=== PATIENT | female | born 1960 | race Caucasian/White ===

== ENCOUNTER 2021-07-17 11:17 | Inpatient (IN) | payer OTHER ==
[2021-07-17] MEDS ORDERED: Sodium Chloride 0.9% 10 ML Syringe FLUSH PRN (12:37)
[2021-07-17] MEDS ORDERED: Ondansetron 4 MG/2 ML SDV IV PRN (12:37)
[2021-07-17] MEDS ORDERED: HYDROmorphone 0.5 MG/0.5 ML Syringe IVPUSH PRN (12:40)
[2021-07-17] MEDS: Lactated Ringers 1,000 ML IV SCH ×2 (12:50→13:28)
[2021-07-17 13:11] LABS: CORONAVIRUS COVID-19 NAA NEGATIVE (NEGATIVE)
[2021-07-17] MEDS ORDERED: Naloxone 0.4 MG/ML SDV IV PRN (13:20)
[2021-07-17] MEDS ORDERED: Dicyclomine 10 MG Cap PO SCH (14:00)
[2021-07-17] MEDS: Labetalol 20 MG/4 ML Syringe IV PRN (17:02)
[2021-07-17] MEDS: atorvaSTATin 20 MG Tab PO SCH (17:17)
[2021-07-17] MEDS: Pantoprazole 40 MG Tab.CR PO SCH (17:18)
[2021-07-17] MEDS ORDERED: Non-Formulary Medication 1 Each (Atorvastatin [Lipitor] 80 MG Tablet) PO SCH (18:00)
[2021-07-17] MEDS: Carvedilol 12.5 MG Tab PO SCH (20:47)
[2021-07-17] MEDS: Losartan 25 MG Tab PO SCH (20:48)
[2021-07-17] MEDS: Dextrose 5%-Lactated Ringers 1,000 ML IV SCH (20:50)
[2021-07-18] MEDS: Dextrose 5%-Lactated Ringers 1,000 ML IV SCH ×3 (04:27→23:26)
[2021-07-18] MEDS ORDERED: Ketamine 500 MG/5 ML MDV IV SCH ×3 (07:00→12:00)
[2021-07-18] MEDS: Pantoprazole 40 MG Tab.CR PO SCH ×2 (07:01→17:00)
[2021-07-18] MEDS ORDERED: Potassium Chloride Riders 40 MEQ in Premix Bag 1 BAG IV ONE (07:23)
[2021-07-18] MEDS: Losartan 50 MG Tab PO SCH (07:29)
[2021-07-18] MEDS: Magnesium Sulfate/Water 2 GM/50 ML BAG IV SCH ×3 (08:24→20:09)
[2021-07-18] MEDS: Potassium Chloride 20 MEQ in Premix Bag 1 BAG IV SCH ×2 (08:25→10:33)
[2021-07-18] MEDS: Aspirin 81 MG Tab.Chew PO SCH (08:25)
[2021-07-18] MEDS: Ezetimibe 10 MG Tab PO SCH (08:26)
[2021-07-18] MEDS: Carvedilol 12.5 MG Tab PO SCH ×2 (08:26→20:20)
[2021-07-18] MEDS ORDERED: [UNRECOGNIZED DRUG - REMARK] PO SCH (09:00)
[2021-07-18] MEDS ORDERED: Ferrous Sulfate 325 MG Tab PO SCH (09:00)
[2021-07-18] MEDS ORDERED: Cyanocobalamin (Vitamin B12) 1,000 MCG Tab PO SCH (09:00)
[2021-07-18] MEDS ORDERED: Ascorbic Acid 500 MG Tab PO SCH (09:00)
[2021-07-18] MEDS ORDERED: Multivitamins with Iron Tab.Chew PO SCH (09:00)
[2021-07-18] MEDS ORDERED: Fish Oil/Omega-3 Fatty Acids 1 Gm Cap PO SCH (09:00)
[2021-07-18] MEDS ORDERED: ASCORBIC ACID 500 MG PO SCH (09:00)
[2021-07-18] MEDS ORDERED: fentaNYL 250 MCG/5 ML SDV ONE (10:31)
[2021-07-18] MEDS ORDERED: Rocuronium 50 MG/5 ML Vial ONE ×2 (10:32→15:28)
[2021-07-18] MEDS ORDERED: Neostigmine Methylsulfate 1 MG/ML 5 ML Syringe ONE (10:32)
[2021-07-18] MEDS ORDERED: Propofol 200 MG/20 ML SDV ONE (10:32)
[2021-07-18] MEDS ORDERED: Dexamethasone 4 MG/ML SDV ONE (10:32)
[2021-07-18] MEDS ORDERED: Glycopyrrolate 0.2 MG/ML 5 ML MDV ONE (10:32)
[2021-07-18] MEDS ORDERED: Ondansetron 4 MG/2 ML SDV ONE (10:32)
[2021-07-18] MEDS ORDERED: Succinylcholine 200 MG/10 ML MDV ONE (10:32)
[2021-07-18] MEDS: Labetalol 20 MG/4 ML Syringe IV PRN (10:48)
[2021-07-18] MEDS ORDERED: Ropivacaine 28 ML, dexAMETHasone 8 MG, EPINEPHrine 0.4 MG, Sodium Chloride 0.9% 49.6 ML NERVRT SCH ×4 (12:00)
[2021-07-18] MEDS ORDERED: Ketamine 15 MG in Sodium Chloride 0.9% 19.85 ML IV SCH (12:00)
[2021-07-18] MEDS ORDERED: cefOXitin 2 GM in Sodium Chloride 0.9% 50 ML IV ONE (12:00)
[2021-07-18] MEDS ORDERED: Bupivacaine 0.5% 50 ML MDV ONE (13:04)
[2021-07-18] MEDS ORDERED: Lidocaine 1% with EPINEPHrine 1:100,000 50 ML MDV ONE (13:04)
[2021-07-18] MEDS ORDERED: Meropenem 500 MG SDV ONE (13:08)
[2021-07-18] MEDS: HYDROmorphone/Normal Saline 6 MG/30 ML PCA Vial IV PRN (14:28)
[2021-07-18] MEDS ORDERED: Labetalol 20 MG/4 ML Syringe ONE (16:08)
[2021-07-18] MEDS ORDERED: Sugammadex Sodium 200 MG/2 ML VIAL ONE (16:10)
[2021-07-18] MEDS ORDERED: Naloxone 0.4 MG/ML SDV ONE (16:30)
[2021-07-18] MEDS ORDERED: hydrALAZINE 20 MG/ML SDV ONE (16:39)
[2021-07-18] MEDS: atorvaSTATin 20 MG Tab PO SCH (18:04)
[2021-07-18] MEDS: Losartan 25 MG Tab PO SCH (20:19)
[2021-07-19] MEDS: Magnesium Sulfate/Water 2 GM/50 ML BAG IV SCH ×4 (02:24→22:35)
[2021-07-19] MEDS ORDERED: Iopamidol 612 MG/ML 50 ML SDV PO STA (02:47)
[2021-07-19] MEDS: Dextrose 5%-Lactated Ringers 1,000 ML IV SCH (05:06)
[2021-07-19] MEDS ORDERED: Lactated Ringers 500 ML IV SCH (06:45)
[2021-07-19] MEDS ORDERED: Lactated Ringers 500 ML IV ONE (06:48)
[2021-07-19] MEDS ORDERED: Cyclobenzaprine 10 MG Tab PO PRN (07:28)
[2021-07-19] MEDS ORDERED: Albuterol/Ipratropium 3.0-0.5 MG/3 ML Neb Soln INH PRN (07:30)
[2021-07-19] MEDS ORDERED: Acetaminophen 500 MG Tab PO PRN (08:00)
[2021-07-19] MEDS ORDERED: Labetalol 20 MG/4 ML Syringe IVPUSH PRN (08:00)
[2021-07-19] MEDS ORDERED: Metoclopramide 10 MG/2 ML SDV IVPUSH PRN (08:00)
[2021-07-19] MEDS ORDERED: Ferrous Sulfate 325 MG Tab PO SCH (08:00)
[2021-07-19] MEDS ORDERED: diphenhydrAMINE 50 MG/ML SDV IVPUSH PRN (08:00)
[2021-07-19] MEDS ORDERED: Scopolamine 1.5 MG Transdermal Patch TOP SCH (08:00)
[2021-07-19] MEDS ORDERED: hydrOXYzine HCL 100 MG/2 ML SDV IM PRN (08:00)
[2021-07-19] MEDS: cefOXitin 2 GM in Sodium Chloride 0.9% 50 ML IV SCH ×3 (08:50→19:59)
[2021-07-19] MEDS: Bisacodyl 5 MG Tab PO SCH ×2 (08:52→20:09)
[2021-07-19] MEDS: Celecoxib 200 MG Cap PO SCH ×2 (08:53→20:07)
[2021-07-19] MEDS: Acetaminophen 500 MG Tab PO SCH ×2 (08:53→17:33)
[2021-07-19] MEDS: Docusate Sodium 100 MG Cap PO SCH ×2 (08:53→20:08)
[2021-07-19] MEDS: Heparin Sodium 5,000 Units/ML Vial SUBCUT SCH ×2 (08:54→20:09)
[2021-07-19] MEDS: Clopidogrel 75 MG Tab PO SCH (08:54)
[2021-07-19] MEDS: SCOPOLAMINE PATCH CHECK TOP SCH (08:54)
[2021-07-19] MEDS: Carvedilol 12.5 MG Tab PO SCH ×2 (08:56→20:08)
[2021-07-19] MEDS: Losartan 50 MG Tab PO SCH (08:58)
[2021-07-19] MEDS: Aspirin 81 MG Tab.Chew PO SCH (08:59)
[2021-07-19] MEDS ORDERED: Sodium Chloride 0.9% 500 ML IV ONE (09:00)
[2021-07-19] MEDS ORDERED: Pantoprazole 40 MG Vial IVPUSH SCH (09:00)
[2021-07-19] MEDS: Sodium Ferric Gluconate Cmplex 250 MG in Sodium Chloride 0.9% 100 ML IV SCH (09:24)
[2021-07-19] MEDS ORDERED: MVI, Adult with Vitamin K 10 ML, Thiamine 200 MG, Zinc/Copper/Manganese/Selenium 1 ML i... IV SCH ×4 (10:00)
[2021-07-19] MEDS: Ezetimibe 10 MG Tab PO SCH (10:30)
[2021-07-19] MEDS: MVI, Adult with Vitamin K 10 ML, Thiamine 200 MG, Zinc/Copper/Manganese/Selenium 1 ML i... IV SCH ×4 (14:20)
[2021-07-19] MEDS: atorvaSTATin 20 MG Tab PO SCH (17:33)
[2021-07-19] MEDS: Losartan 25 MG Tab PO SCH (20:08)
[2021-07-19] MEDS: Lactated Ringers 1,000 ML IV SCH (22:43)
[2021-07-20] MEDS: HYDROmorphone/Normal Saline 6 MG/30 ML PCA Vial IV PRN (00:47)
[2021-07-20] MEDS: Acetaminophen 500 MG Tab PO SCH ×3 (00:51→15:30)
[2021-07-20] MEDS: cefOXitin 2 GM in Sodium Chloride 0.9% 50 ML IV SCH ×3 (03:04→13:32)
[2021-07-20] MEDS: Magnesium Sulfate/Water 2 GM/50 ML BAG IV SCH ×3 (03:39→14:09)
[2021-07-20] MEDS: Lactated Ringers 1,000 ML IV SCH (07:17)
[2021-07-20] MEDS: Losartan 50 MG Tab PO SCH (07:22)
[2021-07-20] MEDS: Pantoprazole 40 MG Tab.CR PO SCH (07:22)
[2021-07-20] MEDS ORDERED: HYDROmorphone 2 MG Tab PO PRN (07:23)
[2021-07-20] MEDS ORDERED: Lactated Ringers 1,000 ML IV SCH (07:30)
[2021-07-20] MEDS ORDERED: Cyanocobalamin (Vitamin B12) 1,000 MCG/ML SDV IM ONE (09:00)
[2021-07-20] MEDS: Sodium Ferric Gluconate Cmplex 250 MG in Sodium Chloride 0.9% 100 ML IV SCH (09:58)
[2021-07-20] MEDS: Aspirin 81 MG Tab.Chew PO SCH (10:13)
[2021-07-20] MEDS: Celecoxib 200 MG Cap PO SCH ×2 (10:13→20:32)
[2021-07-20] MEDS: Docusate Sodium 100 MG Cap PO SCH ×2 (10:14→20:33)
[2021-07-20] MEDS: Carvedilol 12.5 MG Tab PO SCH ×2 (10:14→20:33)
[2021-07-20] MEDS: Bisacodyl 5 MG Tab PO SCH ×2 (10:16→20:34)
[2021-07-20] MEDS: Clopidogrel 75 MG Tab PO SCH (10:17)
[2021-07-20] MEDS: Ezetimibe 10 MG Tab PO SCH (10:18)
[2021-07-20] MEDS: Heparin Sodium 5,000 Units/ML Vial SUBCUT SCH ×2 (10:23→20:34)
[2021-07-20] MEDS: SCOPOLAMINE PATCH CHECK TOP SCH (11:12)
[2021-07-20] MEDS: MVI, Adult with Vitamin K 10 ML, Thiamine 200 MG, Zinc/Copper/Manganese/Selenium 1 ML i... IV SCH ×4 (13:30)
[2021-07-20] MEDS: atorvaSTATin 20 MG Tab PO SCH (18:45)
[2021-07-20] MEDS ORDERED: Magnesium Sulfate/Water 2 GM/50 ML BAG IV ONE (20:00)
[2021-07-20] MEDS: Losartan 25 MG Tab PO SCH (20:34)
[2021-07-21] MEDS: Acetaminophen 500 MG Tab PO SCH ×2 (01:07→09:05)
[2021-07-21] MEDS: Losartan 50 MG Tab PO SCH (07:19)
[2021-07-21] MEDS: Pantoprazole 40 MG Tab.CR PO SCH (07:19)
[2021-07-21] MEDS: Celecoxib 200 MG Cap PO SCH (09:08)
[2021-07-21] MEDS: Docusate Sodium 100 MG Cap PO SCH (09:08)
[2021-07-21] MEDS: Carvedilol 12.5 MG Tab PO SCH (09:09)
[2021-07-21] MEDS: Bisacodyl 5 MG Tab PO SCH (09:11)
[2021-07-21] MEDS: SCOPOLAMINE PATCH CHECK TOP SCH (09:13)
[2021-07-21] MEDS: Clopidogrel 75 MG Tab PO SCH (09:15)
[2021-07-21] MEDS: Ezetimibe 10 MG Tab PO SCH (09:16)
[2021-07-21] MEDS: Aspirin 81 MG Tab.Chew PO SCH (09:17)
[2021-07-21] MEDS: Heparin Sodium 5,000 Units/ML Vial SUBCUT SCH (09:26)
== END 2021-07-21 11:25 | disposition home or self-care (01) | DRG 329 ==
LOC: JP.ED 11:17 → JP.MS 12:37 → UNDOADMOB 12:37 → INTOOBSV 14:30 → OBSVTOIN 14:30 → UNDODISIN 07-21 11:25
PROVIDERS: ADMIT Surgery; ATTEND Surgery
PROC: 0DS80ZZ Reposition Small Intestine, Open Approach (ICD-10-PCS; principal; 2021-07-18)
PROC: 0DB80ZZ Excision of Small Intestine, Open Approach (ICD-10-PCS; 2021-07-18)
PROC: 0WQF0ZZ Repair Abdominal Wall, Open Approach (ICD-10-PCS; 2021-07-18)
PROC: 3E0M05Z Introduction of Adhesion Barrier into Peritoneal Cavity, Open Approach (ICD-10-PCS; 2021-07-18)
DX: K95.89 Other complications of other bariatric procedure (principal); K56.2 Volvulus; K91.2 Postsurgical malabsorption, not elsewhere classified; K43.0 Incisional hernia with obstruction, without gangrene; Z20.822 Contact with and (suspected) exposure to COVID-19; E53.8 Deficiency of other specified B group vitamins; I25.10 Atherosclerotic heart disease of native coronary artery without angina pectoris; E78.00 Pure hypercholesterolemia, unspecified; I10 Essential (primary) hypertension; K21.9 Gastro-esophageal reflux disease without esophagitis; D64.9 Anemia, unspecified; F17.210 Nicotine dependence, cigarettes, uncomplicated; I25.2 Old myocardial infarction; Z95.5 Presence of coronary angioplasty implant and graft; Z90.49 Acquired absence of other specified parts of digestive tract; Z98.890 Other specified postprocedural states; Z79.899 Other long term (current) drug therapy
CPT/HCPCS: 0241U; 36415; 74240; 74240-26; 80048; 80053; 81001; 82306; 82525; 82607; 82728; 82746; 83735; 83880; 84100; 84425; 84590; 84630; 85025; 96365; 96366; 96375; 96376; 99283; 99284; A9270-GY; C9113; G0378; J0171; J0330; J0360; J0694; J1100; J1170; J1644; J2020; J2185; J2310; J2405; J2704; J2710; J2795; J2916; J3010; J3411; J3420; J3475; J3480; J3490; J7040; J7120; J7121; Q9967

== ENCOUNTER 2021-08-05 09:32 | Emergency (ER) | payer OTHER ==
[2021-08-05] MEDS ORDERED: Sodium Chloride 0.9% 10 ML Syringe FLUSH PRN (10:16)
[2021-08-05] MEDS ORDERED: HYDROmorphone 1 MG/ML Syringe IVPUSH ONE (10:17)
[2021-08-05] MEDS ORDERED: LORazepam 2 MG/ML SDV IVPUSH ONE (10:17)
[2021-08-05] MEDS ORDERED: Iopamidol 612 MG/ML 100 ML Bottle IV PRN (12:12)
[2021-08-05] MEDS ORDERED: Sodium Chloride 0.9% 50 ML IV SCH (12:15)
== END 2021-08-05 14:18 | disposition home or self-care (01) ==
LOC: JP.ED 09:32
DX: R10.13 Epigastric pain (principal); F41.9 Anxiety disorder, unspecified; E87.6 Hypokalemia; K21.9 Gastro-esophageal reflux disease without esophagitis; I25.10 Atherosclerotic heart disease of native coronary artery without angina pectoris; E78.00 Pure hypercholesterolemia, unspecified; I10 Essential (primary) hypertension; I25.2 Old myocardial infarction; Z95.5 Presence of coronary angioplasty implant and graft; Z79.82 Long term (current) use of aspirin; Z79.899 Other long term (current) drug therapy; Z98.890 Other specified postprocedural states
CPT/HCPCS: 36415; 74177; 74177-26; 80053; 81001; 83605; 83690; 84443; 85025; 86140; 96374; 96375; 99283; 99284-25; J1170; J2060; J3490; Q9967

== ENCOUNTER 2021-08-07 22:41 | Inpatient (IN) | payer OTHER ==
[2021-08-07] MEDS ORDERED: Ondansetron 4 MG/2 ML SDV IVPUSH PRN (22:49)
[2021-08-07] MEDS ORDERED: Naloxone 0.4 MG/ML SDV IVPUSH PRN (22:50)
[2021-08-07] MEDS ORDERED: Losartan 50 MG Tab ONE (23:20)
[2021-08-07] MEDS: Carvedilol 12.5 MG Tab PO SCH (23:48)
[2021-08-07] MEDS: Losartan 25 MG Tab PO SCH (23:52)
[2021-08-07] MEDS: Dextrose 5%-Lactated Ringers 1,000 ML IV SCH (23:58)
[2021-08-08] MEDS: HYDROmorphone/Normal Saline 6 MG/30 ML PCA Vial IV PRN
[2021-08-08] MEDS: Dextrose 5%-Lactated Ringers 1,000 ML IV SCH ×3 (06:42→23:50)
[2021-08-08] MEDS ORDERED: Acetaminophen 325 MG Tab PO PRN (07:53)
[2021-08-08] MEDS ORDERED: Ondansetron 4 MG/2 ML SDV IVPUSH PRN (07:53)
[2021-08-08] MEDS: Losartan 50 MG Tab PO SCH (09:16)
[2021-08-08] MEDS: Carvedilol 12.5 MG Tab PO SCH ×2 (09:16→20:10)
[2021-08-08] MEDS: Pantoprazole 40 MG Vial IVPUSH SCH ×2 (09:17→20:11)
[2021-08-08] MEDS: Losartan 25 MG Tab PO SCH (17:44)
[2021-08-09] MEDS ORDERED: Potassium Chloride Riders 40 MEQ in Premix Bag 1 BAG IV ONE (07:23)
[2021-08-09] MEDS: Potassium Chloride 20 MEQ, Lidocaine 1% 2 ML in Sodium Chloride 0.9% 100 ML IV SCH ×2 (07:33→10:45)
[2021-08-09] MEDS: Dextrose 5%-Lactated Ringers 1,000 ML IV SCH (07:33)
[2021-08-09] MEDS: Carvedilol 12.5 MG Tab PO SCH ×2 (08:53→20:19)
[2021-08-09] MEDS: Losartan 50 MG Tab PO SCH (08:56)
[2021-08-09] MEDS ORDERED: fentaNYL 250 MCG/5 ML SDV ONE ×2 (10:16→14:00)
[2021-08-09] MEDS ORDERED: Neostigmine Methylsulfate 1 MG/ML 5 ML Syringe ONE (10:17)
[2021-08-09] MEDS ORDERED: Succinylcholine 200 MG/10 ML MDV ONE (10:17)
[2021-08-09] MEDS ORDERED: Glycopyrrolate 0.2 MG/ML 5 ML MDV ONE (10:17)
[2021-08-09] MEDS ORDERED: Ondansetron 4 MG/2 ML SDV ONE (10:17)
[2021-08-09] MEDS ORDERED: Rocuronium 50 MG/5 ML Vial ONE (10:17)
[2021-08-09] MEDS ORDERED: Propofol 200 MG/20 ML SDV ONE (10:17)
[2021-08-09] MEDS ORDERED: Dexamethasone 4 MG/ML SDV ONE (10:17)
[2021-08-09] MEDS: Pantoprazole 40 MG Vial IVPUSH SCH ×2 (10:45→17:11)
[2021-08-09] MEDS ORDERED: Lidocaine 1% with EPINEPHrine 1:100,000 50 ML MDV ONE (11:23)
[2021-08-09] MEDS ORDERED: Meropenem 500 MG SDV ONE ×3 (11:23→14:56)
[2021-08-09] MEDS ORDERED: Bupivacaine 0.5% 50 ML MDV ONE ×2 (11:23→11:24)
[2021-08-09] MEDS ORDERED: cefOXitin 2 GM in Sodium Chloride 0.9% 50 ML IV ONE (11:30)
[2021-08-09] MEDS ORDERED: Ketamine 14 MG in Sodium Chloride 0.9% 19.86 ML IV SCH (11:30)
[2021-08-09] MEDS ORDERED: Ketamine 500 MG/5 ML MDV IV SCH (11:30)
[2021-08-09] MEDS ORDERED: Sodium Chloride 0.9% 10 ML ONE (14:56)
[2021-08-09] MEDS ORDERED: fentaNYL 100 MCG/2 ML SDV IVPUSH ONE (15:51)
[2021-08-09] MEDS: HYDROmorphone/Normal Saline 6 MG/30 ML PCA Vial IV PRN (16:29)
[2021-08-09] MEDS ORDERED: Cyclobenzaprine 10 MG Tab PO PRN ×2 (16:37→16:41)
[2021-08-09] MEDS ORDERED: Acetaminophen 500 MG Tab PO PRN (17:00)
[2021-08-09] MEDS ORDERED: Ondansetron 4 MG/2 ML SDV IVPUSH PRN (17:00)
[2021-08-09] MEDS ORDERED: Labetalol 20 MG/4 ML Syringe IVPUSH PRN (17:00)
[2021-08-09] MEDS ORDERED: diphenhydrAMINE 50 MG/ML SDV IVPUSH PRN (17:00)
[2021-08-09] MEDS ORDERED: hydrOXYzine HCL 100 MG/2 ML SDV IM PRN (17:00)
[2021-08-09] MEDS ORDERED: MVI, Adult with Vitamin K 10 ML, Thiamine 200 MG, Zinc/Copper/Manganese/Selenium 1 ML i... IV SCH ×4 (18:00)
[2021-08-09] MEDS: Losartan 25 MG Tab PO SCH (18:25)
[2021-08-09] MEDS: cefOXitin 2 GM in Sodium Chloride 0.9% 50 ML IV SCH ×2 (18:26→23:34)
[2021-08-09] MEDS: Albuterol/Ipratropium 3.0-0.5 MG/3 ML Neb Soln INH SCH (20:19)
[2021-08-09] MEDS: Heparin Sodium 5,000 Units/ML Vial SUBCUT SCH (20:19)
[2021-08-09] MEDS: Acetaminophen 500 MG Tab PO SCH (21:36)
[2021-08-10] MEDS: Dextrose 5%-Lactated Ringers 1,000 ML IV SCH ×4 (00:53→23:33)
[2021-08-10] MEDS: HYDROmorphone/Normal Saline 6 MG/30 ML PCA Vial IV PRN ×2 (02:32→14:21)
[2021-08-10] MEDS ORDERED: Iopamidol 612 MG/ML 50 ML SDV PO ONE (04:19)
[2021-08-10] MEDS: Acetaminophen 500 MG Tab PO SCH ×3 (05:51→21:46)
[2021-08-10] MEDS: cefOXitin 2 GM in Sodium Chloride 0.9% 50 ML IV SCH ×3 (05:51→17:42)
[2021-08-10] MEDS: Albuterol/Ipratropium 3.0-0.5 MG/3 ML Neb Soln INH SCH ×4 (08:15→21:44)
[2021-08-10] MEDS: Carvedilol 12.5 MG Tab PO SCH ×3 (09:11→21:44)
[2021-08-10] MEDS: SCOPOLAMINE PATCH CHECK TOP SCH (09:12)
[2021-08-10] MEDS: Heparin Sodium 5,000 Units/ML Vial SUBCUT SCH ×2 (09:12→21:44)
[2021-08-10] MEDS: Losartan 50 MG Tab PO SCH (09:12)
[2021-08-10] MEDS: Celecoxib 200 MG Cap PO SCH ×2 (09:12→21:44)
[2021-08-10] MEDS: Magnesium Sulfate/Water 2 GM in Premix Bag 1 BAG IV SCH ×3 (10:06→21:45)
[2021-08-10] MEDS ORDERED: Dextrose 5%-Lactated Ringers 1,000 ML IV SCH (12:00)
[2021-08-10] MEDS: Metoclopramide 10 MG/2 ML SDV IVPUSH PRN (12:02)
[2021-08-10] MEDS ORDERED: Lactated Ringers 500 ML IV SCH ×2 (12:15→17:30)
[2021-08-10] MEDS ORDERED: MVI, Adult with Vitamin K 10 ML, Thiamine 200 MG, Zinc/Copper/Manganese/Selenium 1 ML i... IV SCH ×8 (16:00)
[2021-08-10] MEDS: Losartan 25 MG Tab PO SCH (17:20)
[2021-08-10] MEDS: Pantoprazole 40 MG Vial IVPUSH SCH (17:42)
[2021-08-10] MEDS ORDERED: Lactated Ringers 500 ML IV ONE (21:42)
[2021-08-11] MEDS ORDERED: Lactated Ringers 500 ML IV ONE (03:01)
[2021-08-11] MEDS: Magnesium Sulfate/Water 2 GM in Premix Bag 1 BAG IV SCH ×4 (03:13→22:10)
[2021-08-11] MEDS: HYDROmorphone/Normal Saline 6 MG/30 ML PCA Vial IV PRN (04:45)
[2021-08-11] MEDS: cefOXitin 2 GM in Sodium Chloride 0.9% 50 ML IV SCH ×5 (05:23→17:26)
[2021-08-11] MEDS: Dextrose 5%-Lactated Ringers 1,000 ML IV SCH ×3 (05:23→22:12)
[2021-08-11] MEDS: Acetaminophen 500 MG Tab PO SCH ×3 (06:41→22:11)
[2021-08-11] MEDS ORDERED: Bupivacaine 0.5% 50 ML MDV ONE (06:50)
[2021-08-11] MEDS ORDERED: Lidocaine 1% with EPINEPHrine 1:100,000 50 ML MDV ONE (06:50)
[2021-08-11] MEDS ORDERED: Meropenem 500 MG SDV ONE (06:50)
[2021-08-11] MEDS: Albuterol/Ipratropium 3.0-0.5 MG/3 ML Neb Soln INH SCH ×4 (07:05→20:29)
[2021-08-11] MEDS ORDERED: Propofol 200 MG/20 ML SDV ONE (08:27)
[2021-08-11] MEDS ORDERED: fentaNYL 100 MCG/2 ML SDV ONE (08:27)
[2021-08-11] MEDS ORDERED: Cyanocobalamin (Vitamin B12) 1,000 MCG/ML SDV IM ONE (09:00)
[2021-08-11] MEDS: Carvedilol 12.5 MG Tab PO SCH ×2 (10:33→20:26)
[2021-08-11] MEDS: Losartan 50 MG Tab PO SCH (10:33)
[2021-08-11] MEDS: SCOPOLAMINE PATCH CHECK TOP SCH ×2 (10:34→10:45)
[2021-08-11] MEDS: Heparin Sodium 5,000 Units/ML Vial SUBCUT SCH ×2 (10:34→20:26)
[2021-08-11] MEDS: Celecoxib 200 MG Cap PO SCH ×2 (10:42→20:26)
[2021-08-11] MEDS: Pantoprazole 40 MG Vial IVPUSH SCH (17:04)
[2021-08-11] MEDS: Losartan 25 MG Tab PO SCH (17:04)
[2021-08-12] MEDS: cefOXitin 2 GM in Sodium Chloride 0.9% 50 ML IV SCH ×3 (00:20→14:02)
[2021-08-12] MEDS: Magnesium Sulfate/Water 2 GM in Premix Bag 1 BAG IV SCH ×4 (03:46→21:13)
[2021-08-12] MEDS: Acetaminophen 500 MG Tab PO SCH ×3 (05:09→21:13)
[2021-08-12] MEDS: Albuterol/Ipratropium 3.0-0.5 MG/3 ML Neb Soln INH SCH ×4 (07:07→21:13)
[2021-08-12] MEDS: Celecoxib 200 MG Cap PO SCH ×2 (08:20→21:09)
[2021-08-12] MEDS: Heparin Sodium 5,000 Units/ML Vial SUBCUT SCH ×2 (08:21→21:09)
[2021-08-12] MEDS: Carvedilol 12.5 MG Tab PO SCH ×2 (08:22→21:09)
[2021-08-12] MEDS: Losartan 50 MG Tab PO SCH (08:22)
[2021-08-12] MEDS: Potassium Acetate 20 MEQ in Sodium Chloride 0.9% 150 ML IV SCH ×2 (09:11→14:47)
[2021-08-12] MEDS: HYDROmorphone/Normal Saline 6 MG/30 ML PCA Vial IV PRN (09:25)
[2021-08-12] MEDS: Dextrose 5%-Lactated Ringers 1,000 ML IV SCH (11:28)
[2021-08-12] MEDS ORDERED: Pantoprazole 40 MG Delayed-Release Granules 1 Packet PO SCH (16:30)
[2021-08-12] MEDS: Losartan 25 MG Tab PO SCH (17:32)
[2021-08-13] MEDS: Dextrose 5%-Lactated Ringers 1,000 ML IV SCH (01:22)
[2021-08-13] MEDS: Acetaminophen 500 MG Tab PO SCH ×3 (05:08→22:04)
[2021-08-13] MEDS: Magnesium Sulfate/Water 2 GM in Premix Bag 1 BAG IV SCH (05:09)
[2021-08-13] MEDS: Albuterol/Ipratropium 3.0-0.5 MG/3 ML Neb Soln INH SCH ×5 (07:05→23:49)
[2021-08-13] MEDS ORDERED: Dextrose 5%-Lactated Ringers 1,000 ML IV SCH (07:28)
[2021-08-13] MEDS ORDERED: Furosemide 20 MG/2 ML VIAL IVPUSH ONE ×2 (09:00→14:00)
[2021-08-13] MEDS: Celecoxib 200 MG Cap PO SCH ×2 (09:42→20:34)
[2021-08-13] MEDS: Carvedilol 12.5 MG Tab PO SCH ×2 (09:42→20:34)
[2021-08-13] MEDS: Docusate Sodium 100 MG Cap PO SCH ×2 (09:42→20:34)
[2021-08-13] MEDS: Bisacodyl 5 MG Tab PO SCH ×2 (09:43→20:34)
[2021-08-13] MEDS: Potassium Chloride 10 MEQ Cap.ER PO SCH (09:43)
[2021-08-13] MEDS: Losartan 50 MG Tab PO SCH (09:44)
[2021-08-13] MEDS: Heparin Sodium 5,000 Units/ML Vial SUBCUT SCH ×2 (09:45→20:56)
[2021-08-13] MEDS: Albumin Human 25 GM in Premix Bag 1 BAG IV SCH (09:54)
[2021-08-13] MEDS: hydrOXYzine HCl 25 MG Tab PO PRN (13:03)
[2021-08-13] MEDS: Metoclopramide 10 MG/2 ML SDV IVPUSH PRN (13:49)
[2021-08-13] MEDS: oxyCODONE 5 MG Tab PO PRN ×2 (13:49→20:38)
[2021-08-13] MEDS ORDERED: Scopolamine 1.5 MG Transdermal Patch TRDERM PRN (14:36)
[2021-08-13] MEDS: Bisacodyl 10 MG Supp RECTAL SCH ×2 (15:26→20:34)
[2021-08-13] MEDS ORDERED: Pantoprazole 40 MG Vial IV SCH (16:30)
[2021-08-13] MEDS: Losartan 25 MG Tab PO SCH (17:10)
[2021-08-13] MEDS: Metoclopramide 10 MG/2 ML SDV IVPUSH SCH (19:38)
[2021-08-14] MEDS: Metoclopramide 10 MG/2 ML SDV IVPUSH SCH ×4 (02:33→19:02)
[2021-08-14] MEDS: Albuterol/Ipratropium 3.0-0.5 MG/3 ML Neb Soln INH SCH ×4 (07:11→21:14)
[2021-08-14] MEDS: Acetaminophen 500 MG Tab PO SCH ×3 (07:52→21:01)
[2021-08-14] MEDS: Bisacodyl 5 MG Tab PO SCH ×2 (08:00→20:56)
[2021-08-14] MEDS: Docusate Sodium 100 MG Cap PO SCH ×2 (08:00→20:56)
[2021-08-14] MEDS: Celecoxib 200 MG Cap PO SCH ×2 (08:00→20:56)
[2021-08-14] MEDS: Losartan 50 MG Tab PO SCH (08:01)
[2021-08-14] MEDS: Carvedilol 12.5 MG Tab PO SCH ×2 (08:01→20:58)
[2021-08-14] MEDS: Heparin Sodium 5,000 Units/ML Vial SUBCUT SCH ×2 (08:03→21:00)
[2021-08-14] MEDS: Potassium Chloride 10 MEQ Cap.ER PO SCH ×2 (08:03→20:56)
[2021-08-14] MEDS: Albumin Human 25 GM in Premix Bag 1 BAG IV SCH (08:07)
[2021-08-14] MEDS: VERIFY SCOP PATCH TOP SCH (08:16)
[2021-08-14] MEDS: Bisacodyl 10 MG Supp RECTAL SCH ×2 (10:54→20:56)
[2021-08-14] MEDS: Furosemide 20 MG/2 ML VIAL IVPUSH SCH ×2 (10:54→14:49)
[2021-08-14] MEDS: Pantoprazole 40 MG Delayed-Release Granules 1 Packet PO SCH (17:01)
[2021-08-14] MEDS: oxyCODONE 5 MG Tab PO PRN (17:01)
[2021-08-14] MEDS: Losartan 25 MG Tab PO SCH (17:02)
[2021-08-14] MEDS: hydrOXYzine HCl 25 MG Tab PO PRN (20:56)
[2021-08-14] MEDS ORDERED: Furosemide 20 MG/2 ML VIAL IVPUSH ONE (23:50)
[2021-08-15] MEDS: Metoclopramide 10 MG/2 ML SDV IVPUSH SCH ×4 (01:43→20:37)
[2021-08-15] MEDS: Acetaminophen 500 MG Tab PO SCH ×3 (05:07→21:22)
[2021-08-15] MEDS ORDERED: 50% Dextrose in Water 50 ML Syringe IVPUSH ONE (05:48)
[2021-08-15] MEDS ORDERED: 50% Dextrose in Water 50 ML Syringe ONE (05:50)
[2021-08-15] MEDS: Albuterol/Ipratropium 3.0-0.5 MG/3 ML Neb Soln INH SCH ×4 (07:02→21:12)
[2021-08-15] MEDS: Celecoxib 200 MG Cap PO SCH ×2 (08:27→20:37)
[2021-08-15] MEDS: Carvedilol 12.5 MG Tab PO SCH ×2 (08:28→20:37)
[2021-08-15] MEDS: Docusate Sodium 100 MG Cap PO SCH ×2 (08:28→20:37)
[2021-08-15] MEDS: Losartan 50 MG Tab PO SCH (08:32)
[2021-08-15] MEDS: Bisacodyl 5 MG Tab PO SCH ×2 (08:33→20:38)
[2021-08-15] MEDS: Heparin Sodium 5,000 Units/ML Vial SUBCUT SCH ×2 (08:34→20:44)
[2021-08-15] MEDS: Furosemide 20 MG/2 ML VIAL IVPUSH SCH ×2 (08:34→20:44)
[2021-08-15] MEDS: Potassium Chloride 10 MEQ Cap.ER PO SCH ×2 (08:35→21:21)
[2021-08-15] MEDS: Bisacodyl 10 MG Supp RECTAL SCH ×2 (09:51→21:24)
[2021-08-15] MEDS: Albumin Human 25 GM in Premix Bag 1 BAG IV SCH (09:53)
[2021-08-15] MEDS: VERIFY SCOP PATCH TOP SCH (09:54)
[2021-08-15] MEDS: Pantoprazole 40 MG Delayed-Release Granules 1 Packet PO SCH (16:02)
[2021-08-15] MEDS: Losartan 25 MG Tab PO SCH (16:02)
[2021-08-16] MEDS: Metoclopramide 10 MG/2 ML SDV IVPUSH SCH ×4 (02:40→20:21)
[2021-08-16] MEDS ORDERED: 50% Dextrose in Water 50 ML Syringe IVPUSH ONE (05:03)
[2021-08-16 05:19] LABS: HEMOGLOBIN A1C 5.5 % (4.5-6.2)
[2021-08-16] MEDS: Acetaminophen 500 MG Tab PO SCH ×3 (05:31→21:57)
[2021-08-16] MEDS: Albuterol/Ipratropium 3.0-0.5 MG/3 ML Neb Soln INH SCH ×4 (07:10→21:53)
[2021-08-16] MEDS: Docusate Sodium 100 MG Cap PO SCH ×2 (08:07→21:56)
[2021-08-16] MEDS: Celecoxib 200 MG Cap PO SCH ×2 (08:07→21:56)
[2021-08-16] MEDS: Potassium Chloride 10 MEQ Cap.ER PO SCH ×3 (08:08→21:57)
[2021-08-16] MEDS: VERIFY SCOP PATCH TOP SCH (08:08)
[2021-08-16] MEDS: Bisacodyl 10 MG Supp RECTAL SCH ×2 (08:08→21:57)
[2021-08-16] MEDS: Heparin Sodium 5,000 Units/ML Vial SUBCUT SCH ×2 (08:09→21:57)
[2021-08-16] MEDS: Losartan 50 MG Tab PO SCH (08:09)
[2021-08-16] MEDS: Carvedilol 12.5 MG Tab PO SCH ×2 (08:11→21:57)
[2021-08-16] MEDS: Furosemide 20 MG/2 ML VIAL IVPUSH SCH ×2 (08:21→13:03)
[2021-08-16] MEDS: Bisacodyl 5 MG Tab PO SCH ×2 (08:22→21:56)
[2021-08-16] MEDS: Magnesium Sulfate/Water 2 GM in Premix Bag 1 BAG IV SCH ×3 (08:22→20:19)
[2021-08-16] MEDS ORDERED: Potassium Chloride 20 MEQ, Lidocaine 1% 2 ML in Sodium Chloride 0.9% 100 ML IV ONE (10:00)
[2021-08-16] MEDS: Dextrose 5%-Lactated Ringers 1,000 ML IV SCH ×2 (12:05→21:55)
[2021-08-16] MEDS: Pantoprazole 40 MG Delayed-Release Granules 1 Packet PO SCH (16:57)
[2021-08-16] MEDS: Losartan 25 MG Tab PO SCH (16:59)
[2021-08-17] MEDS: Magnesium Sulfate/Water 2 GM in Premix Bag 1 BAG IV SCH ×4 (02:58→21:59)
[2021-08-17] MEDS: Metoclopramide 10 MG/2 ML SDV IVPUSH SCH ×2 (02:59→09:02)
[2021-08-17] MEDS: Acetaminophen 500 MG Tab PO SCH ×3 (05:45→22:03)
[2021-08-17] MEDS: Albuterol/Ipratropium 3.0-0.5 MG/3 ML Neb Soln INH SCH ×4 (07:25→22:01)
[2021-08-17] MEDS ORDERED: Metoclopramide 10 MG/2 ML SDV IVPUSH PRN (08:02)
[2021-08-17] MEDS: Furosemide 20 MG/2 ML VIAL IVPUSH SCH ×2 (08:10→14:18)
[2021-08-17] MEDS: Heparin Sodium 5,000 Units/ML Vial SUBCUT SCH ×2 (09:02→22:03)
[2021-08-17] MEDS: Carvedilol 12.5 MG Tab PO SCH ×2 (09:02→22:04)
[2021-08-17] MEDS: Celecoxib 200 MG Cap PO SCH ×2 (09:02→22:03)
[2021-08-17] MEDS: Losartan 50 MG Tab PO SCH (09:03)
[2021-08-17] MEDS: VERIFY SCOP PATCH TOP SCH (09:51)
[2021-08-17] MEDS: Potassium Chloride 10 MEQ Cap.ER PO SCH ×3 (09:58→22:03)
[2021-08-17] MEDS ORDERED: Potassium Chloride 40 MEQ, Lidocaine 1% 2 ML in Sodium Chloride 0.9% 100 ML IV SCH (13:45)
[2021-08-17] MEDS: Dextrose 5%-Lactated Ringers 1,000 ML IV SCH (14:25)
[2021-08-17] MEDS: Potassium Chloride 20 MEQ, Lidocaine 1% 2 ML in Sodium Chloride 0.9% 100 ML IV SCH ×2 (16:36→18:40)
[2021-08-17] MEDS: Losartan 25 MG Tab PO SCH (16:39)
[2021-08-17] MEDS ORDERED: Pantoprazole 40 MG Tab.CR PO SCH (21:00)
[2021-08-17] MEDS: oxyCODONE 5 MG Tab PO PRN (22:26)
[2021-08-18] MEDS: Magnesium Sulfate/Water 2 GM in Premix Bag 1 BAG IV SCH ×2 (02:18→08:33)
[2021-08-18] MEDS: Acetaminophen 500 MG Tab PO SCH (05:43)
[2021-08-18] MEDS: oxyCODONE 5 MG Tab PO PRN (05:51)
[2021-08-18] MEDS: Albuterol/Ipratropium 3.0-0.5 MG/3 ML Neb Soln INH SCH ×2 (07:15→10:57)
[2021-08-18] MEDS: Furosemide 20 MG/2 ML VIAL IVPUSH SCH (08:11)
[2021-08-18] MEDS: Celecoxib 200 MG Cap PO SCH (08:14)
[2021-08-18] MEDS: Carvedilol 12.5 MG Tab PO SCH (08:15)
[2021-08-18] MEDS: Losartan 50 MG Tab PO SCH (08:18)
[2021-08-18] MEDS: Potassium Chloride 10 MEQ Cap.ER PO SCH (08:19)
[2021-08-18] MEDS: Heparin Sodium 5,000 Units/ML Vial SUBCUT SCH (08:21)
[2021-08-18] MEDS: VERIFY SCOP PATCH TOP SCH (08:21)
== END 2021-08-18 12:15 | disposition home or self-care (01) | DRG 326 ==
LOC: JP.MS 22:41
PROVIDERS: ADMIT Surgery; ATTEND Surgery
PROC: 0D150ZA Bypass Esophagus to Jejunum, Open Approach (ICD-10-PCS; 2021-08-09)
PROC: 0DB80ZZ Excision of Small Intestine, Open Approach (ICD-10-PCS; 2021-08-09)
PROC: 0FBG0ZZ Excision of Pancreas, Open Approach (ICD-10-PCS; 2021-08-09)
PROC: 3E0M05Z Introduction of Adhesion Barrier into Peritoneal Cavity, Open Approach (ICD-10-PCS; 2021-08-09)
PROC: 0WQFXZZ Repair Abdominal Wall, External Approach (ICD-10-PCS; principal; 2021-08-11)
PROC: 30233N1 Transfusion of Nonautologous Red Blood Cells into Peripheral Vein, Percutaneous Approach (ICD-10-PCS; 2021-08-13)
DX: K95.89 Other complications of other bariatric procedure (principal); K25.1 Acute gastric ulcer with perforation; K91.2 Postsurgical malabsorption, not elsewhere classified; K66.0 Peritoneal adhesions (postprocedural) (postinfection); I77.1 Stricture of artery; K21.9 Gastro-esophageal reflux disease without esophagitis; K58.9 Irritable bowel syndrome, unspecified; I10 Essential (primary) hypertension; I25.2 Old myocardial infarction; Z90.49 Acquired absence of other specified parts of digestive tract; Z88.8 Allergy status to other drugs, medicaments and biological substances; F17.210 Nicotine dependence, cigarettes, uncomplicated; Z95.5 Presence of coronary angioplasty implant and graft
CPT/HCPCS: 36415; 36430; 71046; 71046-26; 74019; 74019-26; 74240; 74240-26; 80053; 82150; 82728; 82947; 83036; 83735; 83880; 84100; 85025; 85027; 86850; 86900; 86901; 86920; 86922; 88307; 88341; 88342; 93005; 94640; A9270-GY; C9113; J0171; J0330; J0694; J1100; J1170; J1644; J1940; J2020; J2185; J2405; J2704; J2710; J2765; J2795; J3010; J3410; J3411; J3420; J3475; J3480; J3490; J7120; J7121; J7620; P9016; P9047; Q9967

== ENCOUNTER 2021-08-20 21:06 | Inpatient (IN) | payer OTHER ==
[2021-08-20] MEDS ORDERED: Ertapenem 1 GM in Sodium Chloride 0.9% 100 ML IV ONE (22:05)
[2021-08-20 22:32] LABS: CORONAVIRUS COVID-19 NAA NEGATIVE (NEGATIVE)
[2021-08-20] MEDS ORDERED: Metoclopramide 10 MG Tab PO PRN (22:41)
[2021-08-20] MEDS ORDERED: Ondansetron 4 MG Tab.DIS PO PRN (22:41)
[2021-08-20] MEDS ORDERED: Sucralfate 1 GM Tab PO SCH (22:45)
[2021-08-20] MEDS ORDERED: Vancomycin 1 GM SDV IV SCH (23:00)
[2021-08-20] MEDS ORDERED: Sodium Chloride 0.9% 1,000 ML IV SCH (23:45)
[2021-08-20] MEDS: Acetaminophen 500 MG Tab PO SCH (23:57)
[2021-08-21] MEDS: oxyCODONE 5 MG Tab PO PRN ×3 (00:03→18:04)
[2021-08-21] MEDS ORDERED: Metoclopramide 10 MG Tab PO PRN (00:25)
[2021-08-21] MEDS: Acetaminophen 500 MG Tab PO SCH ×3 (05:55→21:32)
[2021-08-21] MEDS ORDERED: Dextrose 5%-Lactated Ringers 1,000 ML IV SCH (07:30)
[2021-08-21] MEDS ORDERED: Sodium Chloride 0.9% 75 ML IV SCH (08:00)
[2021-08-21] MEDS ORDERED: Sodium Chloride 0.9% 10 ML Syringe FLUSH PRN (08:00)
[2021-08-21] MEDS ORDERED: Iopamidol 612 MG/ML 500 ML Multipack Bottle IV ONE (08:00)
[2021-08-21] MEDS ORDERED: Meropenem 500 MG SDV ONE (08:02)
[2021-08-21] MEDS ORDERED: Bupivacaine 0.5% 50 ML MDV ONE (08:02)
[2021-08-21] MEDS ORDERED: Lidocaine 1% with EPINEPHrine 1:100,000 50 ML MDV ONE (08:03)
[2021-08-21] MEDS: Losartan 50 MG Tab PO SCH (08:58)
[2021-08-21] MEDS: Pantoprazole 40 MG Tab.CR PO SCH ×2 (08:58→17:26)
[2021-08-21] MEDS: Clopidogrel 75 MG Tab PO SCH (08:58)
[2021-08-21] MEDS: Ezetimibe 10 MG Tab PO SCH (08:58)
[2021-08-21] MEDS: Linezolid 600 MG in Premix Bag 1 BAG IV SCH ×2 (08:59→19:36)
[2021-08-21] MEDS: Aspirin 81 MG Tab.Chew PO SCH (08:59)
[2021-08-21] MEDS: Carvedilol 12.5 MG Tab PO SCH ×2 (08:59→21:33)
[2021-08-21] MEDS: Polyethylene Glycol 3350 Powder 17 GM Packet PO SCH (09:00)
[2021-08-21] MEDS: Albumin Human 25 GM in Premix Bag 1 BAG IV SCH (10:48)
[2021-08-21] MEDS ORDERED: fentaNYL 250 MCG/5 ML SDV ONE (14:07)
[2021-08-21] MEDS ORDERED: Glycopyrrolate 0.2 MG/ML 5 ML MDV ONE (14:07)
[2021-08-21] MEDS ORDERED: Ondansetron 4 MG/2 ML SDV ONE (14:07)
[2021-08-21] MEDS ORDERED: Propofol 200 MG/20 ML SDV ONE (14:07)
[2021-08-21] MEDS ORDERED: Neostigmine Methylsulfate 1 MG/ML 5 ML Syringe ONE (14:07)
[2021-08-21] MEDS ORDERED: Dexamethasone 4 MG/ML SDV ONE (14:07)
[2021-08-21] MEDS ORDERED: Rocuronium 50 MG/5 ML Vial ONE (14:07)
[2021-08-21] MEDS ORDERED: Sugammadex Sodium 200 MG/2 ML VIAL ONE (16:01)
[2021-08-21] MEDS: atorvaSTATin 20 MG Tab PO SCH (17:32)
[2021-08-21] MEDS: Sodium Chloride 0.9% 1,000 ML IV SCH (19:26)
[2021-08-21] MEDS ORDERED: 1: AA 5%/Calcium/D15W/Lytes 1,000 ML with MVI, Adult with Vitamin K 10 ML, Zinc/Copper/M IV SCH ×3 (20:00)
[2021-08-21] MEDS ORDERED: Ertapenem 1 GM in Sodium Chloride 0.9% 100 ML IV SCH (21:00)
[2021-08-21] MEDS: Meropenem 1 GM in Sodium Chloride 0.9% 100 ML IV SCH (21:32)
[2021-08-21] MEDS: Losartan 25 MG Tab PO SCH (21:33)
[2021-08-22] MEDS: Acetaminophen 500 MG Tab PO SCH ×3 (05:41→21:25)
[2021-08-22] MEDS: Meropenem 1 GM in Sodium Chloride 0.9% 100 ML IV SCH ×3 (05:42→22:48)
[2021-08-22] MEDS ORDERED: Central Total Parenteral Nutrition Bag SCH (07:30)
[2021-08-22] MEDS: oxyCODONE 5 MG Tab PO PRN ×3 (07:31→21:25)
[2021-08-22] MEDS: Linezolid 600 MG in Premix Bag 1 BAG IV SCH ×2 (07:36→20:46)
[2021-08-22] MEDS: Aspirin 81 MG Tab.Chew PO SCH (08:00)
[2021-08-22] MEDS: Carvedilol 12.5 MG Tab PO SCH ×2 (08:01→20:52)
[2021-08-22] MEDS: 1: AA 5%/Calcium/D15W/Lytes 1,000 ML with MVI, Adult with Vitamin K 10 ML, Zinc/Copper/M IV SCH ×6 (08:03→20:45)
[2021-08-22] MEDS: Polyethylene Glycol 3350 Powder 17 GM Packet PO SCH (08:06)
[2021-08-22] MEDS: Clopidogrel 75 MG Tab PO SCH (08:07)
[2021-08-22] MEDS: Ezetimibe 10 MG Tab PO SCH (08:08)
[2021-08-22] MEDS ORDERED: 50% Dextrose in Water 50 ML Syringe IVPUSH PRN ×2 (08:15→22:17)
[2021-08-22] MEDS ORDERED: Glucagon,Human Recombinant 1 MG Vial IM PRN ×2 (08:15→22:17)
[2021-08-22] MEDS ORDERED: Glucose Gel 15 GM in 37.5 GM Tube PO PRN (08:15)
[2021-08-22] MEDS: Losartan 50 MG Tab PO SCH (08:25)
[2021-08-22] MEDS: Pantoprazole 40 MG Tab.CR PO SCH ×2 (08:26→17:07)
[2021-08-22] MEDS: Albumin Human 25 GM in Premix Bag 1 BAG IV SCH (10:36)
[2021-08-22] MEDS ORDERED: Furosemide 20 MG/2 ML VIAL IVPUSH ONE (12:00)
[2021-08-22] MEDS: Insulin Lispro 100 Unit/ML 3 ML KwikPen SUBCUT SCH ×2 (12:26→16:32)
[2021-08-22] MEDS: atorvaSTATin 20 MG Tab PO SCH (17:07)
[2021-08-22] MEDS: Losartan 25 MG Tab PO SCH (20:50)
[2021-08-23] MEDS: oxyCODONE 5 MG Tab PO PRN ×3 (05:32→20:57)
[2021-08-23] MEDS: Meropenem 1 GM in Sodium Chloride 0.9% 100 ML IV SCH ×3 (05:33→22:25)
[2021-08-23] MEDS: Acetaminophen 500 MG Tab PO SCH ×3 (05:33→22:25)
[2021-08-23] MEDS: Losartan 50 MG Tab PO SCH (07:22)
[2021-08-23] MEDS: Pantoprazole 40 MG Tab.CR PO SCH ×2 (07:22→17:25)
[2021-08-23] MEDS: Linezolid 600 MG in Premix Bag 1 BAG IV SCH ×2 (07:22→20:54)
[2021-08-23] MEDS ORDERED: Central Total Parenteral Nutrition Bag SCH (07:30)
[2021-08-23] MEDS ORDERED: Potassium Chloride Riders 40 MEQ in Premix Bag 1 BAG IV ONE (07:32)
[2021-08-23] MEDS ORDERED: Furosemide 20 MG/2 ML VIAL IVPUSH ONE ×2 (07:45→12:00)
[2021-08-23] MEDS: Potassium Chloride 20 MEQ in Premix Bag 1 BAG IV SCH ×2 (08:20→11:45)
[2021-08-23] MEDS: Polyethylene Glycol 3350 Powder 17 GM Packet PO SCH (08:21)
[2021-08-23] MEDS: Ezetimibe 10 MG Tab PO SCH (08:21)
[2021-08-23] MEDS: Clopidogrel 75 MG Tab PO SCH (08:21)
[2021-08-23] MEDS: Insulin Lispro 100 Unit/ML 3 ML KwikPen SUBCUT SCH ×4 (08:26→21:30)
[2021-08-23] MEDS: Carvedilol 12.5 MG Tab PO SCH ×2 (08:42→20:52)
[2021-08-23] MEDS: Aspirin 81 MG Tab.Chew PO SCH (08:44)
[2021-08-23] MEDS: 1: AA 5%/Calcium/D15W/Lytes 1,000 ML with MVI, Adult with Vitamin K 10 ML, Zinc/Copper/M IV SCH ×3 (09:49)
[2021-08-23] MEDS: Albumin Human 25 GM in Premix Bag 1 BAG IV SCH (10:10)
[2021-08-23] MEDS: hydrOXYzine HCl 25 MG Tab PO PRN (17:34)
[2021-08-23] MEDS: atorvaSTATin 20 MG Tab PO SCH (17:35)
[2021-08-23] MEDS: Losartan 25 MG Tab PO SCH (20:53)
[2021-08-24] MEDS: 1: AA 5%/Calcium/D15W/Lytes 1,000 ML with MVI, Adult with Vitamin K 10 ML, Zinc/Copper/M IV SCH ×6 (00:16→11:45)
[2021-08-24] MEDS: Meropenem 1 GM in Sodium Chloride 0.9% 100 ML IV SCH (05:27)
[2021-08-24] MEDS: Acetaminophen 500 MG Tab PO SCH ×3 (05:27→21:34)
[2021-08-24] MEDS: oxyCODONE 5 MG Tab PO PRN (05:33)
[2021-08-24] MEDS: hydrOXYzine HCl 25 MG Tab PO PRN (07:27)
[2021-08-24] MEDS: Losartan 50 MG Tab PO SCH (07:29)
[2021-08-24] MEDS: Pantoprazole 40 MG Tab.CR PO SCH ×2 (07:30→15:38)
[2021-08-24] MEDS: Linezolid 600 MG in Premix Bag 1 BAG IV SCH ×2 (07:30→19:27)
[2021-08-24] MEDS ORDERED: Central Total Parenteral Nutrition Bag SCH (07:30)
[2021-08-24] MEDS: Insulin Lispro 100 Unit/ML 3 ML KwikPen SUBCUT SCH ×4 (07:32→21:33)
[2021-08-24] MEDS: oxyCODONE 5 MG Tab PO SCH ×5 (08:15→23:37)
[2021-08-24] MEDS: Aspirin 81 MG Tab.Chew PO SCH (08:22)
[2021-08-24] MEDS: Carvedilol 12.5 MG Tab PO SCH ×2 (08:23→21:33)
[2021-08-24] MEDS: Docusate Sodium 100 MG Cap PO SCH ×2 (08:23→21:33)
[2021-08-24] MEDS: Bisacodyl 5 MG Tab PO SCH ×2 (08:24→21:34)
[2021-08-24] MEDS: Clopidogrel 75 MG Tab PO SCH (08:24)
[2021-08-24] MEDS: Furosemide 20 MG/2 ML VIAL IVPUSH SCH ×3 (08:24→21:34)
[2021-08-24] MEDS: Polyethylene Glycol 3350 Powder 17 GM Packet PO SCH (08:24)
[2021-08-24] MEDS: Ezetimibe 10 MG Tab PO SCH (08:25)
[2021-08-24] MEDS ORDERED: Potassium Chloride Riders 40 MEQ in Premix Bag 1 BAG IV ONE (08:45)
[2021-08-24] MEDS: atorvaSTATin 20 MG Tab PO SCH (18:00)
[2021-08-24] MEDS: Losartan 25 MG Tab PO SCH (21:35)
[2021-08-25] MEDS: 1: AA 5%/Calcium/D15W/Lytes 1,000 ML with MVI, Adult with Vitamin K 10 ML, Zinc/Copper/M IV SCH ×6 (00:23→12:53)
[2021-08-25] MEDS: oxyCODONE 5 MG Tab PO SCH (03:37)
[2021-08-25] MEDS: Acetaminophen 500 MG Tab PO SCH ×3 (05:39→21:20)
[2021-08-25] MEDS ORDERED: Central Total Parenteral Nutrition Bag SCH (07:15)
[2021-08-25] MEDS ORDERED: Furosemide 20 MG/2 ML VIAL IVPUSH SCH (07:30)
[2021-08-25] MEDS: Insulin Lispro 100 Unit/ML 3 ML KwikPen SUBCUT SCH ×4 (07:36→21:21)
[2021-08-25] MEDS: hydrOXYzine HCl 25 MG Tab PO PRN ×2 (07:40→12:11)
[2021-08-25] MEDS: Losartan 50 MG Tab PO SCH (07:41)
[2021-08-25] MEDS: Linezolid 600 MG in Premix Bag 1 BAG IV SCH ×2 (07:42→19:55)
[2021-08-25] MEDS: Pantoprazole 40 MG Tab.CR PO SCH ×2 (07:42→17:16)
[2021-08-25] MEDS: Bisacodyl 5 MG Tab PO SCH ×2 (08:00→20:01)
[2021-08-25] MEDS: Docusate Sodium 100 MG Cap PO SCH ×2 (08:00→20:01)
[2021-08-25] MEDS: Aspirin 81 MG Tab.Chew PO SCH (08:00)
[2021-08-25] MEDS: Ezetimibe 10 MG Tab PO SCH (08:00)
[2021-08-25] MEDS: Carvedilol 12.5 MG Tab PO SCH ×2 (08:00→20:01)
[2021-08-25] MEDS: Polyethylene Glycol 3350 Powder 17 GM Packet PO SCH (08:00)
[2021-08-25] MEDS: Clopidogrel 75 MG Tab PO SCH (08:00)
[2021-08-25] MEDS: Furosemide 40 MG/4 ML VIAL IVPUSH SCH (08:04)
[2021-08-25] MEDS: oxyCODONE 5 MG Tab PO PRN ×4 (09:14→21:20)
[2021-08-25] MEDS: Magnesium Oxide 400 MG Tab PO SCH (09:15)
[2021-08-25] MEDS: Furosemide 20 MG/2 ML VIAL IVPUSH SCH (13:25)
[2021-08-25] MEDS ORDERED: Potassium Chloride Riders 40 MEQ in Premix Bag 1 BAG IV ONE (15:30)
[2021-08-25] MEDS: atorvaSTATin 20 MG Tab PO SCH (17:17)
[2021-08-25] MEDS: Losartan 25 MG Tab PO SCH (20:01)
[2021-08-26] MEDS: 1: AA 5%/Calcium/D15W/Lytes 1,000 ML with MVI, Adult with Vitamin K 10 ML, Zinc/Copper/M IV SCH ×6 (01:25→13:36)
[2021-08-26] MEDS: oxyCODONE 5 MG Tab PO PRN ×5 (01:30→19:22)
[2021-08-26] MEDS: Acetaminophen 500 MG Tab PO SCH ×3 (05:50→21:22)
[2021-08-26] MEDS ORDERED: Central Total Parenteral Nutrition Bag SCH (07:00)
[2021-08-26] MEDS: Insulin Lispro 100 Unit/ML 3 ML KwikPen SUBCUT SCH ×4 (07:46→21:16)
[2021-08-26] MEDS: Losartan 50 MG Tab PO SCH (07:53)
[2021-08-26] MEDS: Pantoprazole 40 MG Tab.CR PO SCH ×2 (07:53→16:30)
[2021-08-26] MEDS: hydrOXYzine HCl 25 MG Tab PO PRN ×3 (07:56→21:15)
[2021-08-26] MEDS: Ciprofloxacin in D5W 400 MG in Premix Bag 1 BAG IV SCH ×4 (08:16→19:23)
[2021-08-26] MEDS: Carvedilol 12.5 MG Tab PO SCH ×2 (08:16→21:19)
[2021-08-26] MEDS: Aspirin 81 MG Tab.Chew PO SCH (08:17)
[2021-08-26] MEDS: Bisacodyl 5 MG Tab PO SCH ×2 (08:17→21:20)
[2021-08-26] MEDS: Potassium Chloride 20 MEQ in Premix Bag 1 BAG IV SCH ×2 (08:17→11:08)
[2021-08-26] MEDS: Docusate Sodium 100 MG Cap PO SCH ×2 (08:17→21:22)
[2021-08-26] MEDS: Magnesium Oxide 400 MG Tab PO SCH (08:17)
[2021-08-26] MEDS: Furosemide 40 MG/4 ML VIAL IVPUSH SCH (08:18)
[2021-08-26] MEDS ORDERED: Potassium Chloride Riders 40 MEQ in Premix Bag 1 BAG IV SCH (09:00)
[2021-08-26] MEDS: Ezetimibe 10 MG Tab PO SCH (09:47)
[2021-08-26] MEDS: Polyethylene Glycol 3350 Powder 17 GM Packet PO SCH (09:47)
[2021-08-26] MEDS: Clopidogrel 75 MG Tab PO SCH (09:47)
[2021-08-26] MEDS: Meropenem 500 MG in Sodium Chloride 0.9% 50 ML IV SCH ×3 (09:48→21:23)
[2021-08-26] MEDS: Furosemide 20 MG/2 ML VIAL IVPUSH SCH (13:08)
[2021-08-26] MEDS: atorvaSTATin 20 MG Tab PO SCH (17:16)
[2021-08-26] MEDS: Sodium Chloride 0.9% 1,000 ML IV SCH (17:17)
[2021-08-26] MEDS: Losartan 25 MG Tab PO SCH (21:22)
[2021-08-27] MEDS: oxyCODONE 5 MG Tab PO PRN ×2 (01:09→05:45)
[2021-08-27] MEDS: 1: AA 5%/Calcium/D15W/Lytes 1,000 ML with MVI, Adult with Vitamin K 10 ML, Zinc/Copper/M IV SCH ×6 (02:47→14:36)
[2021-08-27] MEDS: hydrOXYzine HCl 25 MG Tab PO PRN (02:52)
[2021-08-27] MEDS: Meropenem 500 MG in Sodium Chloride 0.9% 50 ML IV SCH ×4 (03:36→21:53)
[2021-08-27] MEDS: Acetaminophen 500 MG Tab PO SCH ×3 (05:45→22:27)
[2021-08-27] MEDS ORDERED: diphenhydrAMINE 50 MG/ML SDV IVPUSH PRN (06:59)
[2021-08-27] MEDS ORDERED: Naloxone 0.4 MG/ML SDV IVPUSH PRN (06:59)
[2021-08-27] MEDS ORDERED: Ondansetron 4 MG/2 ML SDV IVPUSH PRN (06:59)
[2021-08-27] MEDS ORDERED: diphenhydrAMINE 25 MG Cap PO PRN (06:59)
[2021-08-27] MEDS ORDERED: Central Total Parenteral Nutrition Bag SCH (07:15)
[2021-08-27] MEDS: Insulin Lispro 100 Unit/ML 3 ML KwikPen SUBCUT SCH ×4 (07:36→20:57)
[2021-08-27] MEDS: Ciprofloxacin in D5W 400 MG in Premix Bag 1 BAG IV SCH ×4 (07:37→20:48)
[2021-08-27] MEDS: Pantoprazole 40 MG Tab.CR PO SCH ×2 (07:37→16:03)
[2021-08-27] MEDS: Losartan 50 MG Tab PO SCH (07:37)
[2021-08-27] MEDS: HYDROmorphone/Normal Saline 6 MG/30 ML PCA Vial IV PRN (07:47)
[2021-08-27] MEDS: Furosemide 40 MG/4 ML VIAL IVPUSH SCH (08:39)
[2021-08-27] MEDS: Bisacodyl 5 MG Tab PO SCH ×2 (08:39→20:56)
[2021-08-27] MEDS: Docusate Sodium 100 MG Cap PO SCH ×2 (08:39→20:55)
[2021-08-27] MEDS: Polyethylene Glycol 3350 Powder 17 GM Packet PO SCH (08:39)
[2021-08-27] MEDS: Clopidogrel 75 MG Tab PO SCH (08:40)
[2021-08-27] MEDS: Magnesium Oxide 400 MG Tab PO SCH (08:40)
[2021-08-27] MEDS: Carvedilol 12.5 MG Tab PO SCH ×2 (08:40→20:55)
[2021-08-27] MEDS: Ezetimibe 10 MG Tab PO SCH (08:41)
[2021-08-27] MEDS: Bisacodyl 10 MG Supp RECTAL SCH ×2 (08:41→21:00)
[2021-08-27] MEDS: Aspirin 81 MG Tab.Chew PO SCH (08:41)
[2021-08-27] MEDS: Potassium Chloride 20 MEQ in Premix Bag 1 BAG IV SCH ×2 (08:44→10:55)
[2021-08-27] MEDS: Furosemide 20 MG/2 ML VIAL IVPUSH SCH (13:26)
[2021-08-27] MEDS: atorvaSTATin 20 MG Tab PO SCH (17:19)
[2021-08-27] MEDS: Losartan 25 MG Tab PO SCH (20:55)
[2021-08-28] MEDS: Meropenem 500 MG in Sodium Chloride 0.9% 50 ML IV SCH ×4 (02:25→21:03)
[2021-08-28] MEDS: 1: AA 5%/Calcium/D15W/Lytes 1,000 ML with MVI, Adult with Vitamin K 10 ML, Zinc/Copper/M IV SCH ×6 (03:05→14:31)
[2021-08-28] MEDS: Acetaminophen 500 MG Tab PO SCH ×3 (05:22→21:03)
[2021-08-28] MEDS ORDERED: Central Total Parenteral Nutrition Bag SCH (07:30)
[2021-08-28] MEDS: Insulin Lispro 100 Unit/ML 3 ML KwikPen SUBCUT SCH ×4 (08:14→21:01)
[2021-08-28] MEDS: Pantoprazole 40 MG Tab.CR PO SCH ×2 (08:16→17:10)
[2021-08-28] MEDS: Aspirin 81 MG Tab.Chew PO SCH (08:16)
[2021-08-28] MEDS: Ezetimibe 10 MG Tab PO SCH (08:16)
[2021-08-28] MEDS: Magnesium Oxide 400 MG Tab PO SCH (08:16)
[2021-08-28] MEDS: Losartan 50 MG Tab PO SCH (08:16)
[2021-08-28] MEDS: Polyethylene Glycol 3350 Powder 17 GM Packet PO SCH (08:17)
[2021-08-28] MEDS: Clopidogrel 75 MG Tab PO SCH (08:17)
[2021-08-28] MEDS: Bisacodyl 5 MG Tab PO SCH ×2 (08:17→21:18)
[2021-08-28] MEDS: Carvedilol 12.5 MG Tab PO SCH ×2 (08:17→21:21)
[2021-08-28] MEDS: Furosemide 40 MG/4 ML VIAL IVPUSH SCH (08:18)
[2021-08-28] MEDS: Bisacodyl 10 MG Supp RECTAL SCH ×2 (08:18→21:18)
[2021-08-28] MEDS: Ciprofloxacin in D5W 400 MG in Premix Bag 1 BAG IV SCH ×4 (08:18→19:13)
[2021-08-28] MEDS: HYDROmorphone/Normal Saline 6 MG/30 ML PCA Vial IV PRN (08:43)
[2021-08-28] MEDS: Docusate Sodium 100 MG Cap PO SCH ×2 (08:44→20:57)
[2021-08-28] MEDS: Albumin Human 25 GM in Premix Bag 1 BAG IV SCH (08:45)
[2021-08-28] MEDS: Potassium Chloride 20 MEQ in Premix Bag 1 BAG IV SCH ×2 (09:59→11:50)
[2021-08-28] MEDS: Furosemide 20 MG/2 ML VIAL IVPUSH SCH (13:34)
[2021-08-28] MEDS: atorvaSTATin 20 MG Tab PO SCH (17:11)
[2021-08-28] MEDS: Losartan 25 MG Tab PO SCH (21:21)
[2021-08-29] MEDS: Meropenem 500 MG in Sodium Chloride 0.9% 50 ML IV SCH ×4 (02:38→21:33)
[2021-08-29] MEDS: 1: AA 5%/Calcium/D15W/Lytes 1,000 ML with MVI, Adult with Vitamin K 10 ML, Zinc/Copper/M IV SCH ×6 (02:49→16:03)
[2021-08-29] MEDS: Acetaminophen 500 MG Tab PO SCH ×3 (05:41→21:30)
[2021-08-29] MEDS: Insulin Lispro 100 Unit/ML 3 ML KwikPen SUBCUT SCH ×4 (07:35→21:24)
[2021-08-29] MEDS: Losartan 50 MG Tab PO SCH (07:36)
[2021-08-29] MEDS: Pantoprazole 40 MG Tab.CR PO SCH ×2 (07:36→15:44)
[2021-08-29] MEDS: Ciprofloxacin in D5W 400 MG in Premix Bag 1 BAG IV SCH ×4 (07:37→19:48)
[2021-08-29] MEDS: Albumin Human 25 GM in Premix Bag 1 BAG IV SCH (08:38)
[2021-08-29] MEDS: Ezetimibe 10 MG Tab PO SCH (08:39)
[2021-08-29] MEDS: Bisacodyl 5 MG Tab PO SCH ×2 (08:39→21:29)
[2021-08-29] MEDS: Aspirin 81 MG Tab.Chew PO SCH (08:39)
[2021-08-29] MEDS: Carvedilol 12.5 MG Tab PO SCH ×2 (08:39→21:31)
[2021-08-29] MEDS: Clopidogrel 75 MG Tab PO SCH (08:39)
[2021-08-29] MEDS: Magnesium Oxide 400 MG Tab PO SCH (08:40)
[2021-08-29] MEDS: Furosemide 40 MG/4 ML VIAL IVPUSH SCH (08:40)
[2021-08-29] MEDS: Polyethylene Glycol 3350 Powder 17 GM Packet PO SCH (08:41)
[2021-08-29] MEDS: Potassium Chloride 20 MEQ in Premix Bag 1 BAG IV SCH ×2 (08:41→11:38)
[2021-08-29] MEDS: Docusate Sodium 100 MG Cap PO SCH ×2 (09:40→21:29)
[2021-08-29] MEDS: Bisacodyl 10 MG Supp RECTAL SCH ×2 (09:40→21:29)
[2021-08-29] MEDS: Furosemide 20 MG/2 ML VIAL IVPUSH SCH (14:15)
[2021-08-29] MEDS: atorvaSTATin 20 MG Tab PO SCH (17:49)
[2021-08-29] MEDS: Losartan 25 MG Tab PO SCH (21:30)
[2021-08-29] MEDS ORDERED: Bacitracin Oint 28.35 GM Tube TOP PRN (21:44)
[2021-08-30] MEDS: Meropenem 500 MG in Sodium Chloride 0.9% 50 ML IV SCH ×4 (03:31→21:59)
[2021-08-30] MEDS: 1: AA 5%/Calcium/D15W/Lytes 1,000 ML with MVI, Adult with Vitamin K 10 ML, Zinc/Copper/M IV SCH ×6 (04:38→16:07)
[2021-08-30] MEDS: Acetaminophen 500 MG Tab PO SCH ×3 (05:43→22:00)
[2021-08-30] MEDS ORDERED: Central Total Parenteral Nutrition Bag SCH (07:30)
[2021-08-30] MEDS: Insulin Lispro 100 Unit/ML 3 ML KwikPen SUBCUT SCH ×4 (08:54→22:00)
[2021-08-30] MEDS: Losartan 50 MG Tab PO SCH (08:57)
[2021-08-30] MEDS: Ciprofloxacin in D5W 400 MG in Premix Bag 1 BAG IV SCH ×4 (08:57→19:41)
[2021-08-30] MEDS: Pantoprazole 40 MG Tab.CR PO SCH ×2 (08:57→16:08)
[2021-08-30] MEDS: Aspirin 81 MG Tab.Chew PO SCH (08:58)
[2021-08-30] MEDS: Docusate Sodium 100 MG Cap PO SCH ×2 (08:58→22:04)
[2021-08-30] MEDS: Carvedilol 12.5 MG Tab PO SCH ×2 (09:10→22:01)
[2021-08-30] MEDS: Magnesium Oxide 400 MG Tab PO SCH (09:11)
[2021-08-30] MEDS: Furosemide 40 MG/4 ML VIAL IVPUSH SCH (09:11)
[2021-08-30] MEDS: Polyethylene Glycol 3350 Powder 17 GM Packet PO SCH (09:12)
[2021-08-30] MEDS: Clopidogrel 75 MG Tab PO SCH (09:12)
[2021-08-30] MEDS: Albumin Human 25 GM in Premix Bag 1 BAG IV SCH (09:26)
[2021-08-30] MEDS: Potassium Chloride 20 MEQ in Premix Bag 1 BAG IV SCH ×2 (11:21→13:46)
[2021-08-30] MEDS: Furosemide 20 MG/2 ML VIAL IVPUSH SCH (13:45)
[2021-08-30] MEDS: Losartan 25 MG Tab PO SCH (22:01)
[2021-08-30] MEDS: HYDROmorphone/Normal Saline 6 MG/30 ML PCA Vial IV PRN (22:08)
[2021-08-31] MEDS: Meropenem 500 MG in Sodium Chloride 0.9% 50 ML IV SCH ×4 (03:13→22:49)
[2021-08-31] MEDS: 1: AA 5%/Calcium/D15W/Lytes 1,000 ML with MVI, Adult with Vitamin K 10 ML, Zinc/Copper/M IV SCH ×6 (04:29→17:04)
[2021-08-31] MEDS ORDERED: Central Total Parenteral Nutrition Bag SCH (06:45)
[2021-08-31] MEDS: Acetaminophen 500 MG Tab PO SCH ×3 (07:02→21:11)
[2021-08-31] MEDS: Insulin Lispro 100 Unit/ML 3 ML KwikPen SUBCUT SCH ×4 (07:13→21:10)
[2021-08-31] MEDS: Ciprofloxacin in D5W 400 MG in Premix Bag 1 BAG IV SCH ×4 (07:15→21:07)
[2021-08-31] MEDS: Pantoprazole 40 MG Tab.CR PO SCH ×2 (07:19→15:36)
[2021-08-31] MEDS: Losartan 50 MG Tab PO SCH (07:19)
[2021-08-31] MEDS: Potassium Chloride 20 MEQ in Premix Bag 1 BAG IV SCH ×2 (08:21→12:13)
[2021-08-31] MEDS: Carvedilol 12.5 MG Tab PO SCH ×2 (09:25→21:11)
[2021-08-31] MEDS: Aspirin 81 MG Tab.Chew PO SCH (09:25)
[2021-08-31] MEDS: Docusate Sodium 100 MG Cap PO SCH ×2 (09:25→21:10)
[2021-08-31] MEDS: Furosemide 40 MG/4 ML VIAL IVPUSH SCH (09:25)
[2021-08-31] MEDS: Polyethylene Glycol 3350 Powder 17 GM Packet PO SCH ×2 (09:26→09:33)
[2021-08-31] MEDS: Clopidogrel 75 MG Tab PO SCH (09:26)
[2021-08-31] MEDS: Magnesium Oxide 400 MG Tab PO SCH (09:26)
[2021-08-31] MEDS: Furosemide 20 MG/2 ML VIAL IVPUSH SCH (13:48)
[2021-08-31] MEDS: Losartan 25 MG Tab PO SCH (21:11)
[2021-09-01] MEDS: Meropenem 500 MG in Sodium Chloride 0.9% 50 ML IV SCH ×4 (02:38→21:43)
[2021-09-01] MEDS: 1: AA 5%/Calcium/D15W/Lytes 1,000 ML with MVI, Adult with Vitamin K 10 ML, Zinc/Copper/M IV SCH ×6 (04:53→17:45)
[2021-09-01] MEDS: Acetaminophen 500 MG Tab PO SCH ×3 (05:03→21:43)
[2021-09-01] MEDS ORDERED: Central Total Parenteral Nutrition Bag SCH (07:15)
[2021-09-01] MEDS: Insulin Lispro 100 Unit/ML 3 ML KwikPen SUBCUT SCH (07:15)
[2021-09-01] MEDS: Pantoprazole 40 MG Tab.CR PO SCH ×2 (07:22→15:41)
[2021-09-01] MEDS: Losartan 50 MG Tab PO SCH (07:23)
[2021-09-01] MEDS: Ciprofloxacin in D5W 400 MG in Premix Bag 1 BAG IV SCH ×4 (07:24→19:28)
[2021-09-01] MEDS: Clopidogrel 75 MG Tab PO SCH (08:02)
[2021-09-01] MEDS: Aspirin 81 MG Tab.Chew PO SCH (08:02)
[2021-09-01] MEDS: Furosemide 40 MG/4 ML VIAL IVPUSH SCH (08:03)
[2021-09-01] MEDS: Magnesium Oxide 400 MG Tab PO SCH (08:03)
[2021-09-01] MEDS: Polyethylene Glycol 3350 Powder 17 GM Packet PO SCH (08:03)
[2021-09-01] MEDS: Carvedilol 12.5 MG Tab PO SCH ×2 (08:03→21:42)
[2021-09-01] MEDS: Docusate Sodium 100 MG Cap PO SCH ×2 (08:03→21:42)
[2021-09-01] MEDS: Furosemide 20 MG/2 ML VIAL IVPUSH SCH (14:14)
[2021-09-01] MEDS: Losartan 25 MG Tab PO SCH (21:43)
[2021-09-02] MEDS: Meropenem 500 MG in Sodium Chloride 0.9% 50 ML IV SCH ×4 (02:40→23:36)
[2021-09-02] MEDS: Acetaminophen 500 MG Tab PO SCH ×3 (05:55→21:04)
[2021-09-02] MEDS: 1: AA 5%/Calcium/D15W/Lytes 1,000 ML with MVI, Adult with Vitamin K 10 ML, Zinc/Copper/M IV SCH ×6 (05:55→18:56)
[2021-09-02] MEDS ORDERED: Central Total Parenteral Nutrition Bag SCH (06:45)
[2021-09-02] MEDS: Pantoprazole 40 MG Tab.CR PO SCH ×2 (07:34→16:51)
[2021-09-02] MEDS: Losartan 50 MG Tab PO SCH (07:35)
[2021-09-02] MEDS: Carvedilol 12.5 MG Tab PO SCH ×2 (09:40→21:04)
[2021-09-02] MEDS: Docusate Sodium 100 MG Cap PO SCH ×2 (09:40→21:04)
[2021-09-02] MEDS: Magnesium Oxide 400 MG Tab PO SCH (09:41)
[2021-09-02] MEDS: Aspirin 81 MG Tab.Chew PO SCH (09:41)
[2021-09-02] MEDS: Furosemide 40 MG/4 ML VIAL IVPUSH SCH (09:41)
[2021-09-02] MEDS: Ciprofloxacin in D5W 400 MG in Premix Bag 1 BAG IV SCH ×4 (10:07→21:02)
[2021-09-02] MEDS: Polyethylene Glycol 3350 Powder 17 GM Packet PO SCH (10:08)
[2021-09-02] MEDS: Clopidogrel 75 MG Tab PO SCH (10:09)
[2021-09-02] MEDS: Furosemide 20 MG/2 ML VIAL IVPUSH SCH (14:11)
[2021-09-02] MEDS: Losartan 25 MG Tab PO SCH (21:04)
[2021-09-03] MEDS: Meropenem 500 MG in Sodium Chloride 0.9% 50 ML IV SCH (03:48)
[2021-09-03] MEDS: Acetaminophen 500 MG Tab PO SCH ×3 (05:56→21:00)
[2021-09-03] MEDS ORDERED: Central Total Parenteral Nutrition Bag SCH (07:00)
[2021-09-03] MEDS: 1: AA 5%/Calcium/D15W/Lytes 1,000 ML with MVI, Adult with Vitamin K 10 ML, Zinc/Copper/M IV SCH ×6 (07:32→20:11)
[2021-09-03] MEDS: Pantoprazole 40 MG Tab.CR PO SCH ×2 (07:38→18:49)
[2021-09-03] MEDS: Losartan 50 MG Tab PO SCH (07:38)
[2021-09-03] MEDS: Carvedilol 12.5 MG Tab PO SCH ×2 (09:25→20:52)
[2021-09-03] MEDS: Docusate Sodium 100 MG Cap PO SCH ×2 (09:25→20:51)
[2021-09-03] MEDS: Aspirin 81 MG Tab.Chew PO SCH (09:25)
[2021-09-03] MEDS: Magnesium Oxide 400 MG Tab PO SCH (09:26)
[2021-09-03] MEDS: Furosemide 40 MG/4 ML VIAL IVPUSH SCH (09:26)
[2021-09-03] MEDS: Clopidogrel 75 MG Tab PO SCH (09:26)
[2021-09-03] MEDS: Polyethylene Glycol 3350 Powder 17 GM Packet PO SCH (09:27)
[2021-09-03] MEDS: Lactobacillus Rhamnosus GG (Probiotic) Cap PO SCH ×2 (09:30→20:54)
[2021-09-03] MEDS: Potassium Chloride 20 MEQ in Premix Bag 1 BAG IV SCH ×2 (09:35→13:20)
[2021-09-03] MEDS: Furosemide 20 MG/2 ML VIAL IVPUSH SCH (13:17)
[2021-09-03] MEDS: HYDROmorphone/Normal Saline 6 MG/30 ML PCA Vial IV PRN (14:03)
[2021-09-03] MEDS: Sodium Chloride 0.9% 1,000 ML IV SCH (18:53)
[2021-09-03] MEDS: Losartan 25 MG Tab PO SCH (20:54)
[2021-09-04] MEDS: Acetaminophen 500 MG Tab PO SCH ×3 (05:26→21:01)
[2021-09-04] MEDS ORDERED: Central Total Parenteral Nutrition Bag SCH (07:00)
[2021-09-04] MEDS: Losartan 50 MG Tab PO SCH (07:36)
[2021-09-04] MEDS: Pantoprazole 40 MG Tab.CR PO SCH ×2 (07:36→18:08)
[2021-09-04] MEDS: 1: AA 5%/Calcium/D15W/Lytes 1,000 ML with MVI, Adult with Vitamin K 10 ML, Zinc/Copper/M IV SCH ×6 (08:43→21:00)
[2021-09-04] MEDS: Docusate Sodium 100 MG Cap PO SCH ×2 (08:51→20:46)
[2021-09-04] MEDS: Carvedilol 12.5 MG Tab PO SCH ×2 (08:51→20:47)
[2021-09-04] MEDS: Lactobacillus Rhamnosus GG (Probiotic) Cap PO SCH ×2 (08:51→20:49)
[2021-09-04] MEDS: Aspirin 81 MG Tab.Chew PO SCH (08:51)
[2021-09-04] MEDS: Magnesium Oxide 400 MG Tab PO SCH (08:52)
[2021-09-04] MEDS: Polyethylene Glycol 3350 Powder 17 GM Packet PO SCH (08:52)
[2021-09-04] MEDS: Furosemide 40 MG/4 ML VIAL IVPUSH SCH (08:52)
[2021-09-04] MEDS: Clopidogrel 75 MG Tab PO SCH (08:52)
[2021-09-04] MEDS: Potassium Chloride 20 MEQ in Premix Bag 1 BAG IV SCH ×2 (12:52→15:29)
[2021-09-04] MEDS: Furosemide 20 MG/2 ML VIAL IVPUSH SCH (14:42)
[2021-09-04] MEDS: Losartan 25 MG Tab PO SCH (20:48)
[2021-09-05] MEDS: Acetaminophen 500 MG Tab PO SCH ×3 (05:35→21:06)
[2021-09-05] MEDS ORDERED: Central Total Parenteral Nutrition Bag SCH (07:15)
[2021-09-05] MEDS: Losartan 50 MG Tab PO SCH (07:24)
[2021-09-05] MEDS: Pantoprazole 40 MG Tab.CR PO SCH ×2 (07:24→16:44)
[2021-09-05] MEDS: Polyethylene Glycol 3350 Powder 17 GM Packet PO SCH (09:06)
[2021-09-05] MEDS: Carvedilol 12.5 MG Tab PO SCH ×2 (09:06→21:07)
[2021-09-05] MEDS: Furosemide 40 MG/4 ML VIAL IVPUSH SCH (09:07)
[2021-09-05] MEDS: Docusate Sodium 100 MG Cap PO SCH ×2 (09:07→21:07)
[2021-09-05] MEDS: Aspirin 81 MG Tab.Chew PO SCH (09:07)
[2021-09-05] MEDS: Lactobacillus Rhamnosus GG (Probiotic) Cap PO SCH ×2 (09:07→21:07)
[2021-09-05] MEDS: Clopidogrel 75 MG Tab PO SCH (09:07)
[2021-09-05] MEDS: Magnesium Oxide 400 MG Tab PO SCH (09:11)
[2021-09-05] MEDS: 1: AA 5%/Calcium/D15W/Lytes 1,000 ML with MVI, Adult with Vitamin K 10 ML, Zinc/Copper/M IV SCH ×6 (09:22→22:15)
[2021-09-05] MEDS: Potassium Chloride 20 MEQ in Premix Bag 1 BAG IV SCH ×2 (11:26→14:34)
[2021-09-05] MEDS: Furosemide 20 MG/2 ML VIAL IVPUSH SCH (14:51)
[2021-09-05] MEDS: Losartan 25 MG Tab PO SCH (21:07)
[2021-09-06] MEDS: Acetaminophen 500 MG Tab PO SCH ×3 (05:53→21:04)
[2021-09-06] MEDS: Losartan 50 MG Tab PO SCH (07:35)
[2021-09-06] MEDS: Pantoprazole 40 MG Tab.CR PO SCH ×2 (07:36→15:31)
[2021-09-06] MEDS ORDERED: Central Total Parenteral Nutrition Bag SCH (07:45)
[2021-09-06] MEDS: Lactobacillus Rhamnosus GG (Probiotic) Cap PO SCH ×2 (08:10→21:04)
[2021-09-06] MEDS: Carvedilol 12.5 MG Tab PO SCH ×2 (08:10→21:04)
[2021-09-06] MEDS: Clopidogrel 75 MG Tab PO SCH (08:10)
[2021-09-06] MEDS: Magnesium Oxide 400 MG Tab PO SCH (08:11)
[2021-09-06] MEDS: Docusate Sodium 100 MG Cap PO SCH ×2 (08:11→21:04)
[2021-09-06] MEDS: Furosemide 40 MG/4 ML VIAL IVPUSH SCH (08:11)
[2021-09-06] MEDS: Aspirin 81 MG Tab.Chew PO SCH (08:11)
[2021-09-06] MEDS: Potassium Chloride 20 MEQ in Premix Bag 1 BAG IV SCH ×2 (10:00→12:56)
[2021-09-06] MEDS: Polyethylene Glycol 3350 Powder 17 GM Packet PO SCH (10:01)
[2021-09-06] MEDS ORDERED: AA 5%/Calcium/D15W/Lytes 2,000 ML with MVI, Adult with Vitamin K 10 ML, Zinc/Copper/Man... IV SCH ×3 (10:30)
[2021-09-06] MEDS: Furosemide 20 MG/2 ML VIAL IVPUSH SCH (13:37)
[2021-09-06] MEDS: Losartan 25 MG Tab PO SCH (21:07)
[2021-09-07] MEDS: Sodium Chloride 0.9% 1,000 ML IV SCH (03:24)
[2021-09-07] MEDS: Acetaminophen 500 MG Tab PO SCH ×3 (05:30→22:51)
[2021-09-07] MEDS: Clopidogrel 75 MG Tab PO SCH (07:59)
[2021-09-07] MEDS: Lactobacillus Rhamnosus GG (Probiotic) Cap PO SCH ×2 (07:59→20:28)
[2021-09-07] MEDS: Docusate Sodium 100 MG Cap PO SCH ×2 (08:00→20:27)
[2021-09-07] MEDS: Polyethylene Glycol 3350 Powder 17 GM Packet PO SCH (08:00)
[2021-09-07] MEDS: Pantoprazole 40 MG Tab.CR PO SCH ×2 (08:00→16:26)
[2021-09-07] MEDS: Aspirin 81 MG Tab.Chew PO SCH (08:00)
[2021-09-07] MEDS: Losartan 50 MG Tab PO SCH (08:00)
[2021-09-07] MEDS: Furosemide 40 MG/4 ML VIAL IVPUSH SCH (08:01)
[2021-09-07] MEDS: Magnesium Oxide 400 MG Tab PO SCH (08:01)
[2021-09-07] MEDS: Carvedilol 12.5 MG Tab PO SCH ×2 (08:01→20:28)
[2021-09-07] MEDS: AA 5%/Calcium/D15W/Lytes 2,000 ML with MVI, Adult with Vitamin K 10 ML, Zinc/Copper/Man... IV SCH ×3 (10:30)
[2021-09-07] MEDS: Potassium Chloride 20 MEQ in Premix Bag 1 BAG IV SCH ×2 (10:30→12:53)
[2021-09-07] MEDS: Furosemide 20 MG/2 ML VIAL IVPUSH SCH (14:01)
[2021-09-07] MEDS: Losartan 25 MG Tab PO SCH (20:28)
[2021-09-07] MEDS: HYDROmorphone/Normal Saline 6 MG/30 ML PCA Vial IV PRN (22:59)
[2021-09-08] MEDS: Acetaminophen 500 MG Tab PO SCH ×3 (05:24→21:14)
[2021-09-08] MEDS: Losartan 50 MG Tab PO SCH (09:07)
[2021-09-08] MEDS: Docusate Sodium 100 MG Cap PO SCH ×2 (09:08→21:18)
[2021-09-08] MEDS: Clopidogrel 75 MG Tab PO SCH (09:08)
[2021-09-08] MEDS: Lactobacillus Rhamnosus GG (Probiotic) Cap PO SCH ×2 (09:08→21:14)
[2021-09-08] MEDS: Carvedilol 12.5 MG Tab PO SCH ×2 (09:08→21:14)
[2021-09-08] MEDS: Aspirin 81 MG Tab.Chew PO SCH (09:08)
[2021-09-08] MEDS: Pantoprazole 40 MG Tab.CR PO SCH ×2 (09:08→16:06)
[2021-09-08] MEDS: Furosemide 40 MG/4 ML VIAL IVPUSH SCH (09:09)
[2021-09-08] MEDS: Magnesium Oxide 400 MG Tab PO SCH (09:09)
[2021-09-08] MEDS: Polyethylene Glycol 3350 Powder 17 GM Packet PO SCH (09:10)
[2021-09-08] MEDS: Potassium Chloride 20 MEQ in Premix Bag 1 BAG IV SCH ×2 (10:43→12:49)
[2021-09-08] MEDS: AA 5%/Calcium/D15W/Lytes 2,000 ML with MVI, Adult with Vitamin K 10 ML, Zinc/Copper/Man... IV SCH ×3 (11:36)
[2021-09-08] MEDS: Furosemide 20 MG/2 ML VIAL IVPUSH SCH (14:05)
[2021-09-08] MEDS: Losartan 25 MG Tab PO SCH (21:15)
[2021-09-08] MEDS: Sodium Chloride 0.9% 1,000 ML IV SCH (23:01)
[2021-09-09] MEDS: Acetaminophen 500 MG Tab PO SCH ×3 (06:07→21:22)
[2021-09-09] MEDS ORDERED: Central Total Parenteral Nutrition Bag SCH (07:00)
[2021-09-09] MEDS: Losartan 50 MG Tab PO SCH (07:40)
[2021-09-09] MEDS: Pantoprazole 40 MG Tab.CR PO SCH ×2 (07:40→15:38)
[2021-09-09] MEDS: HYDROmorphone 2 MG Tab PO PRN ×2 (08:44→15:37)
[2021-09-09] MEDS: Magnesium Oxide 400 MG Tab PO SCH (08:45)
[2021-09-09] MEDS: Lactobacillus Rhamnosus GG (Probiotic) Cap PO SCH ×2 (08:45→21:22)
[2021-09-09] MEDS: Aspirin 81 MG Tab.Chew PO SCH (08:45)
[2021-09-09] MEDS: Carvedilol 12.5 MG Tab PO SCH ×2 (08:45→21:21)
[2021-09-09] MEDS: Furosemide 40 MG/4 ML VIAL IVPUSH SCH (08:45)
[2021-09-09] MEDS: Polyethylene Glycol 3350 Powder 17 GM Packet PO SCH ×2 (08:46→08:49)
[2021-09-09] MEDS: Clopidogrel 75 MG Tab PO SCH (08:46)
[2021-09-09] MEDS: Docusate Sodium 100 MG Cap PO SCH ×2 (08:50→21:20)
[2021-09-09] MEDS: Potassium Chloride 20 MEQ in Premix Bag 1 BAG IV SCH ×2 (10:04→12:07)
[2021-09-09] MEDS: Furosemide 20 MG/2 ML VIAL IVPUSH SCH (14:04)
[2021-09-09] MEDS: Losartan 25 MG Tab PO SCH (21:20)
[2021-09-10] MEDS: HYDROmorphone 2 MG Tab PO PRN (04:56)
[2021-09-10] MEDS: Acetaminophen 500 MG Tab PO SCH (05:00)
[2021-09-10] MEDS: Pantoprazole 40 MG Tab.CR PO SCH (07:13)
[2021-09-10] MEDS: Losartan 50 MG Tab PO SCH (07:14)
[2021-09-10] MEDS: Magnesium Oxide 400 MG Tab PO SCH (08:08)
[2021-09-10] MEDS: Clopidogrel 75 MG Tab PO SCH (08:08)
[2021-09-10] MEDS: Carvedilol 12.5 MG Tab PO SCH (08:08)
[2021-09-10] MEDS: Aspirin 81 MG Tab.Chew PO SCH (08:08)
[2021-09-10] MEDS: Furosemide 40 MG/4 ML VIAL IVPUSH SCH (08:09)
[2021-09-10] MEDS: Docusate Sodium 100 MG Cap PO SCH (08:09)
[2021-09-10] MEDS: Polyethylene Glycol 3350 Powder 17 GM Packet PO SCH (08:09)
[2021-09-10] MEDS: Lactobacillus Rhamnosus GG (Probiotic) Cap PO SCH (08:14)
== END 2021-09-10 10:35 | disposition home health service (06) | DRG 862 ==
LOC: JP.ED 21:06 → JP.MS 22:01 → JP.SDSSCHI 08-21 01:16 → JP.MS 08-21 01:29
PROVIDERS: ADMIT Family Medicine; ATTEND Surgery
PROC: 3E0336Z Introduction of Nutritional Substance into Peripheral Vein, Percutaneous Approach (ICD-10-PCS; principal; 2021-08-21)
PROC: 02HV33Z Insertion of Infusion Device into Superior Vena Cava, Percutaneous Approach (ICD-10-PCS; 2021-08-21)
PROC: 0J980ZZ Drainage of Abdomen Subcutaneous Tissue and Fascia, Open Approach (ICD-10-PCS; 2021-08-21)
DX: T81.41XA Infection following a procedure, superficial incisional surgical site, initial encounter (principal); K65.1 Peritoneal abscess; E43 Unspecified severe protein-calorie malnutrition; T81.31XA Disruption of external operation (surgical) wound, not elsewhere classified, initial encounter; I25.10 Atherosclerotic heart disease of native coronary artery without angina pectoris; E78.00 Pure hypercholesterolemia, unspecified; K44.9 Diaphragmatic hernia without obstruction or gangrene; E53.8 Deficiency of other specified B group vitamins; I10 Essential (primary) hypertension; D64.9 Anemia, unspecified; Z20.822 Contact with and (suspected) exposure to COVID-19; K21.9 Gastro-esophageal reflux disease without esophagitis; B95.61 Methicillin susceptible Staphylococcus aureus infection as the cause of diseases classified elsewhere; B96.89 Other specified bacterial agents as the cause of diseases classified elsewhere; Z79.82 Long term (current) use of aspirin; Z79.01 Long term (current) use of anticoagulants; Z79.899 Other long term (current) drug therapy; Z87.440 Personal history of urinary (tract) infections; Z98.84 Bariatric surgery status; I25.2 Old myocardial infarction; Z88.8 Allergy status to other drugs, medicaments and biological substances; Z95.5 Presence of coronary angioplasty implant and graft; Z90.49 Acquired absence of other specified parts of digestive tract; Z98.51 Tubal ligation status; Z86.19 Personal history of other infectious and parasitic diseases
CPT/HCPCS: 0241U; 36415; 36430; 74177; 74177-26; 80053; 80202; 81001; 82150; 82947; 83605; 83690; 83735; 83880; 84100; 85025; 85027; 86850; 86900; 86901; 86920; 86922; 87070; 87075; 87077; 87186; 87205; 96374; 96375; 99283; 99284-25; A9270-GY; J0744; J1100; J1170; J1335; J1642; J1815; J1940; J2020; J2185; J2405; J2704; J2710; J3010; J3370; J3480; J3490; J7030; J7050; P9016; P9047; Q9967

== ENCOUNTER 2021-11-18 13:56 | Inpatient (IN) | payer OTHER ==
[2021-11-18] MEDS ORDERED: Naloxone 0.4 MG/ML SDV IV PRN (15:00)
[2021-11-18] MEDS ORDERED: Iopamidol 612 MG/ML 100 ML Bottle IV PRN (15:38)
[2021-11-18] MEDS ORDERED: Sodium Chloride 0.9% 75 ML IV SCH (15:45)
[2021-11-18 15:54] LABS: ESTIMATED GFR 83 mL/min (>60)
[2021-11-18] MEDS: HYDROmorphone/Normal Saline 6 MG/30 ML PCA Vial IV PRN (15:55)
[2021-11-18] MEDS: Lactated Ringers 1,000 ML IV SCH (15:57)
[2021-11-18] MEDS: Ondansetron 4 MG/2 ML SDV IVPUSH PRN (19:58)
[2021-11-18] MEDS: Ketoconazole 2% Crm 30 GM Tube TOP SCH (20:06)
[2021-11-18] MEDS: Docusate Sodium 100 MG Cap PO SCH (20:12)
[2021-11-18] MEDS: Carvedilol 12.5 MG Tab PO SCH (20:12)
[2021-11-18] MEDS: Losartan 25 MG Tab PO SCH (20:13)
[2021-11-19] MEDS: Lactated Ringers 1,000 ML IV SCH ×3 (01:30→23:56)
[2021-11-19] MEDS: HYDROmorphone/Normal Saline 6 MG/30 ML PCA Vial IV PRN ×2 (05:48→19:32)
[2021-11-19] MEDS ORDERED: diphenhydrAMINE 25 MG Cap PO PRN (07:41)
[2021-11-19] MEDS ORDERED: Naloxone 0.4 MG/ML SDV IVPUSH PRN (07:41)
[2021-11-19] MEDS ORDERED: diphenhydrAMINE 50 MG/ML SDV IVPUSH PRN (07:41)
[2021-11-19] MEDS ORDERED: Ondansetron 4 MG/2 ML SDV IVPUSH PRN (07:41)
[2021-11-19] MEDS: Pantoprazole 40 MG Tab.CR PO SCH (08:03)
[2021-11-19] MEDS: Docusate Sodium 100 MG Cap PO SCH ×2 (08:03→20:26)
[2021-11-19] MEDS: Ezetimibe 10 MG Tab PO SCH (08:03)
[2021-11-19] MEDS: Clopidogrel 75 MG Tab PO SCH (08:03)
[2021-11-19] MEDS: Carvedilol 12.5 MG Tab PO SCH ×2 (08:03→20:26)
[2021-11-19] MEDS: Losartan 50 MG Tab PO SCH (08:03)
[2021-11-19] MEDS: Furosemide 20 MG Tab PO SCH (08:04)
[2021-11-19] MEDS: Ketoconazole 2% Crm 30 GM Tube TOP SCH ×2 (08:05→21:02)
[2021-11-19] MEDS: Linezolid 600 MG in Premix Bag 1 BAG IV SCH ×2 (08:16→20:25)
[2021-11-19] MEDS: Ondansetron 4 MG/2 ML SDV IVPUSH PRN ×2 (09:47→16:24)
[2021-11-19] MEDS: Losartan 25 MG Tab PO SCH (20:27)
[2021-11-20] MEDS: Ondansetron 4 MG/2 ML SDV IVPUSH PRN ×2 (01:49→07:34)
[2021-11-20 05:08] LABS: ESTIMATED GFR 97 mL/min (>60)
[2021-11-20] MEDS: HYDROmorphone/Normal Saline 6 MG/30 ML PCA Vial IV PRN ×2 (06:12→17:30)
[2021-11-20] MEDS: Pantoprazole 40 MG Tab.CR PO SCH ×2 (08:20→08:48)
[2021-11-20] MEDS: Docusate Sodium 100 MG Cap PO SCH ×2 (08:47→20:34)
[2021-11-20] MEDS: Carvedilol 12.5 MG Tab PO SCH ×2 (08:47→20:36)
[2021-11-20] MEDS: Losartan 50 MG Tab PO SCH (08:47)
[2021-11-20] MEDS: Furosemide 20 MG Tab PO SCH (08:47)
[2021-11-20] MEDS: Lactated Ringers 1,000 ML IV SCH (08:48)
[2021-11-20] MEDS: Linezolid 600 MG in Premix Bag 1 BAG IV SCH ×2 (08:49→20:36)
[2021-11-20] MEDS: Ketoconazole 2% Crm 30 GM Tube TOP SCH (08:54)
[2021-11-20] MEDS: Ezetimibe 10 MG Tab PO SCH (08:54)
[2021-11-20] MEDS: Clopidogrel 75 MG Tab PO SCH (08:54)
[2021-11-20] MEDS ORDERED: Succinylcholine 200 MG/10 ML MDV ONE (09:55)
[2021-11-20] MEDS ORDERED: Neostigmine Methylsulfate 1 MG/ML 5 ML Syringe ONE (09:55)
[2021-11-20] MEDS ORDERED: Propofol 200 MG/20 ML SDV ONE (09:55)
[2021-11-20] MEDS ORDERED: Glycopyrrolate 0.2 MG/ML 5 ML MDV ONE (09:55)
[2021-11-20] MEDS ORDERED: Ondansetron 4 MG/2 ML SDV ONE (09:55)
[2021-11-20] MEDS ORDERED: fentaNYL 250 MCG/5 ML SDV ONE (09:55)
[2021-11-20] MEDS ORDERED: Rocuronium 50 MG/5 ML Vial ONE (09:55)
[2021-11-20] MEDS ORDERED: Dexamethasone 4 MG/ML SDV ONE (09:55)
[2021-11-20] MEDS: Magnesium Sulfate/Water 2 GM in Premix Bag 1 BAG IV SCH ×3 (10:39→21:41)
[2021-11-20] MEDS ORDERED: Bupivacaine 0.5% 30 ML SDV ONE (12:48)
[2021-11-20] MEDS ORDERED: Lidocaine 1% with EPINEPHrine 1:100,000 50 ML MDV ONE (12:48)
[2021-11-20] MEDS ORDERED: Bupivacaine 0.5%/EPINEPHrine 1:200,000 50 ML MDV ONE (12:49)
[2021-11-20] MEDS ORDERED: Sodium Chloride 0.9% 10 ML ONE (13:52)
[2021-11-20] MEDS ORDERED: Meropenem 500 MG SDV ONE (13:52)
[2021-11-20] MEDS ORDERED: Ketamine 14 MG in Sodium Chloride 0.9% 19.86 ML IV SCH (14:00)
[2021-11-20] MEDS ORDERED: Ketamine 500 MG/5 ML MDV IV SCH ×3 (14:00)
[2021-11-20] MEDS ORDERED: Lidocaine 1% 50 ML MDV ONE (14:02)
[2021-11-20] MEDS ORDERED: Linezolid 600 MG/300 ML Premix Bag IRR ONE (14:45)
[2021-11-20] MEDS ORDERED: Dextrose 5%-Lactated Ringers 1,000 ML IV SCH (16:30)
[2021-11-20] MEDS: Acetaminophen 325 MG Tab PO SCH ×2 (16:46→22:12)
[2021-11-20] MEDS: MVI, Adult with Vitamin K 10 ML, Thiamine 200 MG, Zinc/Copper/Manganese/Selenium 1 ML i... IV SCH ×4 (16:59)
[2021-11-20] MEDS ORDERED: diphenhydrAMINE 50 MG/ML SDV IVPUSH PRN (17:00)
[2021-11-20] MEDS ORDERED: Labetalol 20 MG/4 ML Syringe IVPUSH PRN (17:00)
[2021-11-20] MEDS ORDERED: Metoclopramide 10 MG/2 ML SDV IVPUSH PRN (17:00)
[2021-11-20] MEDS ORDERED: Albuterol/Ipratropium 3.0-0.5 MG/3 ML Neb Soln INH PRN (17:00)
[2021-11-20] MEDS ORDERED: hydrOXYzine HCL 100 MG/2 ML SDV IM PRN (17:00)
[2021-11-20] MEDS: Losartan 25 MG Tab PO SCH (20:36)
[2021-11-21] MEDS: Magnesium Sulfate/Water 2 GM in Premix Bag 1 BAG IV SCH ×4 (02:32→21:22)
[2021-11-21] MEDS: Acetaminophen 325 MG Tab PO SCH ×4 (04:36→23:34)
[2021-11-21 05:16] LABS: ESTIMATED GFR 83 mL/min (>60)
[2021-11-21] MEDS: Lactated Ringers 1,000 ML IV SCH (07:51)
[2021-11-21] MEDS: Pantoprazole 40 MG Vial IVPUSH SCH (08:21)
[2021-11-21] MEDS: Ondansetron 4 MG/2 ML SDV IVPUSH PRN ×2 (08:30→21:41)
[2021-11-21] MEDS: Ciprofloxacin in D5W 400 MG in Premix Bag 1 BAG IV SCH ×4 (08:34→21:33)
[2021-11-21] MEDS: Celecoxib 200 MG Cap PO SCH ×2 (08:34→21:22)
[2021-11-21] MEDS: Docusate Sodium 100 MG Cap PO SCH ×2 (08:35→21:22)
[2021-11-21] MEDS: Clopidogrel 75 MG Tab PO SCH (08:42)
[2021-11-21] MEDS: Ezetimibe 10 MG Tab PO SCH (08:43)
[2021-11-21] MEDS: Furosemide 20 MG Tab PO SCH (08:48)
[2021-11-21] MEDS: Losartan 25 MG Tab PO SCH ×2 (08:48→21:32)
[2021-11-21] MEDS: Carvedilol 12.5 MG Tab PO SCH ×3 (08:48→21:41)
[2021-11-21] MEDS: HYDROmorphone/Normal Saline 6 MG/30 ML PCA Vial IV PRN (08:53)
[2021-11-21] MEDS ORDERED: Losartan 50 MG Tab PO SCH (09:00)
[2021-11-21] MEDS: Albumin Human 25 GM in Premix Bag 1 BAG IV SCH (11:58)
[2021-11-21] MEDS ORDERED: Meropenem 500 MG SDV ONE (14:42)
[2021-11-21] MEDS ORDERED: Lidocaine 1% 50 ML MDV ONE (14:42)
[2021-11-21] MEDS: MVI, Adult with Vitamin K 10 ML, Thiamine 200 MG, Zinc/Copper/Manganese/Selenium 1 ML i... IV SCH ×4 (16:10)
[2021-11-22] MEDS: Magnesium Sulfate/Water 2 GM in Premix Bag 1 BAG IV SCH ×4 (03:21→20:43)
[2021-11-22] MEDS: HYDROmorphone/Normal Saline 6 MG/30 ML PCA Vial IV PRN (03:33)
[2021-11-22] MEDS: Acetaminophen 325 MG Tab PO SCH ×4 (05:21→22:25)
[2021-11-22 05:25] LABS: ESTIMATED GFR 72 mL/min (>60)
[2021-11-22] MEDS ORDERED: Bupivacaine 0.5% 30 ML SDV ONE (06:40)
[2021-11-22] MEDS ORDERED: Lidocaine 1% with EPINEPHrine 1:100,000 50 ML MDV ONE (06:41)
[2021-11-22] MEDS ORDERED: Meropenem 500 MG SDV ONE (06:43)
[2021-11-22] MEDS ORDERED: Propofol 200 MG/20 ML SDV ONE (06:58)
[2021-11-22] MEDS ORDERED: Ketoconazole 2% Crm 30 GM Tube ONE (07:28)
[2021-11-22] MEDS ORDERED: Albumin Human 25 GM in Premix Bag 1 BAG IV SCH (08:00)
[2021-11-22] MEDS ORDERED: Cyanocobalamin (Vitamin B12) 1,000 MCG/ML SDV IM ONE (09:00)
[2021-11-22] MEDS: Ciprofloxacin in D5W 400 MG in Premix Bag 1 BAG IV SCH ×4 (09:26→20:43)
[2021-11-22] MEDS: Pantoprazole 40 MG Vial IVPUSH SCH (09:27)
[2021-11-22] MEDS: Docusate Sodium 100 MG Cap PO SCH ×2 (09:27→20:44)
[2021-11-22] MEDS: Celecoxib 200 MG Cap PO SCH ×2 (09:27→20:44)
[2021-11-22] MEDS: Multivitamins with Iron Tab.Chew PO SCH (09:27)
[2021-11-22] MEDS: Clopidogrel 75 MG Tab PO SCH (09:28)
[2021-11-22] MEDS: Ezetimibe 10 MG Tab PO SCH (09:29)
[2021-11-22] MEDS: Lactated Ringers 1,000 ML IV SCH (09:40)
[2021-11-22] MEDS ORDERED: Sodium Chloride 0.9% 500 ML ONE (10:17)
[2021-11-22] MEDS: Losartan 25 MG Tab PO SCH ×2 (10:19→20:45)
[2021-11-22] MEDS: Carvedilol 12.5 MG Tab PO SCH ×2 (10:19→20:45)
[2021-11-22] MEDS: Furosemide 20 MG Tab PO SCH (10:20)
[2021-11-22] MEDS: Albumin Human 25 GM in Premix Bag 1 BAG IV SCH (12:17)
[2021-11-22] MEDS: HYDROmorphone 2 MG Tab PO PRN ×3 (13:28→22:25)
[2021-11-22] MEDS ORDERED: hydrOXYzine HCL 100 MG/2 ML SDV IM PRN (15:04)
[2021-11-22] MEDS: Cyclobenzaprine 10 MG Tab PO PRN (22:25)
[2021-11-23] MEDS: Lactated Ringers 1,000 ML IV SCH (03:14)
[2021-11-23] MEDS: Magnesium Sulfate/Water 2 GM in Premix Bag 1 BAG IV SCH (03:15)
[2021-11-23] MEDS: Acetaminophen 325 MG Tab PO SCH ×4 (05:16→22:27)
[2021-11-23 05:19] LABS: ESTIMATED GFR 83 mL/min (>60)
[2021-11-23] MEDS: HYDROmorphone 2 MG Tab PO PRN (05:26)
[2021-11-23] MEDS: Pantoprazole 40 MG Tab.CR PO SCH (07:25)
[2021-11-23] MEDS: Cyclobenzaprine 10 MG Tab PO PRN (07:28)
[2021-11-23] MEDS ORDERED: Naloxone 0.4 MG/ML SDV IVPUSH PRN (07:37)
[2021-11-23] MEDS: HYDROmorphone/Normal Saline 6 MG/30 ML PCA Vial IV PRN (08:16)
[2021-11-23] MEDS: Carvedilol 12.5 MG Tab PO SCH ×2 (09:17→20:12)
[2021-11-23] MEDS: Losartan 25 MG Tab PO SCH ×2 (09:18→20:12)
[2021-11-23] MEDS: Ezetimibe 10 MG Tab PO SCH (09:19)
[2021-11-23] MEDS: Multivitamins with Iron Tab.Chew PO SCH (09:19)
[2021-11-23] MEDS: Docusate Sodium 100 MG Cap PO SCH ×2 (09:19→20:11)
[2021-11-23] MEDS: Ciprofloxacin in D5W 400 MG in Premix Bag 1 BAG IV SCH ×4 (09:19→20:11)
[2021-11-23] MEDS: Celecoxib 200 MG Cap PO SCH ×2 (09:19→20:11)
[2021-11-23] MEDS: Clopidogrel 75 MG Tab PO SCH (09:19)
[2021-11-23] MEDS: Furosemide 20 MG Tab PO SCH (09:19)
[2021-11-23] MEDS ORDERED: Lactated Ringers 1,000 ML IV SCH (09:30)
[2021-11-23] MEDS: Bisacodyl 5 MG Tab PO SCH ×2 (10:00→20:12)
[2021-11-23] MEDS: Albumin Human 25 GM in Premix Bag 1 BAG IV SCH (11:21)
[2021-11-24] MEDS: Lactated Ringers 1,000 ML IV SCH (03:06)
[2021-11-24] MEDS: Acetaminophen 325 MG Tab PO SCH ×4 (04:51→22:16)
[2021-11-24 04:58] LABS: ESTIMATED GFR 97 mL/min (>60)
[2021-11-24] MEDS: HYDROmorphone/Normal Saline 6 MG/30 ML PCA Vial IV PRN ×2 (06:22→20:11)
[2021-11-24] MEDS: Pantoprazole 40 MG Tab.CR PO SCH (07:13)
[2021-11-24] MEDS: Ciprofloxacin in D5W 400 MG in Premix Bag 1 BAG IV SCH ×4 (08:01→21:10)
[2021-11-24] MEDS: Docusate Sodium 100 MG Cap PO SCH ×2 (08:03→21:12)
[2021-11-24] MEDS: Bisacodyl 5 MG Tab PO SCH ×2 (08:03→21:14)
[2021-11-24] MEDS: Multivitamins with Iron Tab.Chew PO SCH (08:03)
[2021-11-24] MEDS: Celecoxib 200 MG Cap PO SCH ×2 (08:03→21:11)
[2021-11-24] MEDS: Ezetimibe 10 MG Tab PO SCH (08:06)
[2021-11-24] MEDS: Losartan 25 MG Tab PO SCH ×2 (08:06→21:14)
[2021-11-24] MEDS: Carvedilol 12.5 MG Tab PO SCH ×2 (08:06→21:12)
[2021-11-24] MEDS: Clopidogrel 75 MG Tab PO SCH (08:06)
[2021-11-24] MEDS: Furosemide 20 MG Tab PO SCH (08:06)
[2021-11-24] MEDS: Ondansetron 4 MG/2 ML SDV IVPUSH PRN (09:03)
[2021-11-24] MEDS: Potassium Chloride 20 MEQ, Lidocaine 1% 2 ML in Sodium Chloride 0.9% 100 ML IV SCH ×3 (09:05→14:09)
[2021-11-24] MEDS ORDERED: Furosemide 20 MG/2 ML VIAL IVPUSH ONE (11:00)
[2021-11-24] MEDS: Albumin Human 25 GM in Premix Bag 1 BAG IV SCH (11:47)
[2021-11-24] MEDS: Cyclobenzaprine 10 MG Tab PO PRN (17:04)
[2021-11-25] MEDS: Acetaminophen 325 MG Tab PO SCH ×4 (04:23→22:09)
[2021-11-25 05:17] LABS: ESTIMATED GFR 83 mL/min (>60)
[2021-11-25] MEDS: Pantoprazole 40 MG Tab.CR PO SCH (07:19)
[2021-11-25] MEDS: Ciprofloxacin in D5W 400 MG in Premix Bag 1 BAG IV SCH ×4 (08:48→20:11)
[2021-11-25] MEDS: Clopidogrel 75 MG Tab PO SCH (08:53)
[2021-11-25] MEDS: Multivitamins with Iron Tab.Chew PO SCH (08:53)
[2021-11-25] MEDS: Losartan 25 MG Tab PO SCH ×2 (08:54→20:13)
[2021-11-25] MEDS: Ezetimibe 10 MG Tab PO SCH (08:54)
[2021-11-25] MEDS: Celecoxib 200 MG Cap PO SCH ×2 (08:54→20:12)
[2021-11-25] MEDS: Docusate Sodium 100 MG Cap PO SCH ×2 (08:54→20:13)
[2021-11-25] MEDS: Furosemide 20 MG Tab PO SCH (08:54)
[2021-11-25] MEDS: Bisacodyl 5 MG Tab PO SCH ×2 (08:54→20:14)
[2021-11-25] MEDS: Carvedilol 12.5 MG Tab PO SCH ×2 (08:55→20:13)
[2021-11-25] MEDS: HYDROmorphone/Normal Saline 6 MG/30 ML PCA Vial IV PRN (10:28)
[2021-11-25] MEDS: Albumin Human 25 GM in Premix Bag 1 BAG IV SCH (10:31)
[2021-11-25] MEDS ORDERED: Furosemide 20 MG/2 ML VIAL IVPUSH ONE (15:00)
[2021-11-26] MEDS: HYDROmorphone/Normal Saline 6 MG/30 ML PCA Vial IV PRN (02:23)
[2021-11-26 05:32] LABS: ESTIMATED GFR 72 mL/min (>60)
[2021-11-26] MEDS: Lactated Ringers 1,000 ML IV SCH (06:05)
[2021-11-26] MEDS: Acetaminophen 325 MG Tab PO SCH ×4 (06:06→23:47)
[2021-11-26] MEDS: Pantoprazole 40 MG Tab.CR PO SCH (08:00)
[2021-11-26] MEDS ORDERED: Magnesium Hydroxide 400 MG/5 ML Susp 30 ML Cup PO ONE (09:00)
[2021-11-26] MEDS: Ezetimibe 10 MG Tab PO SCH (09:10)
[2021-11-26] MEDS: Losartan 25 MG Tab PO SCH ×2 (09:10→20:39)
[2021-11-26] MEDS: Celecoxib 200 MG Cap PO SCH ×2 (09:11→20:38)
[2021-11-26] MEDS: Clopidogrel 75 MG Tab PO SCH (09:11)
[2021-11-26] MEDS: Furosemide 20 MG Tab PO SCH (09:11)
[2021-11-26] MEDS: Multivitamins with Iron Tab.Chew PO SCH (09:12)
[2021-11-26] MEDS: Bisacodyl 5 MG Tab PO SCH ×2 (09:12→20:40)
[2021-11-26] MEDS: Carvedilol 12.5 MG Tab PO SCH ×2 (09:12→20:40)
[2021-11-26] MEDS: Docusate Sodium 100 MG Cap PO SCH ×2 (09:13→20:39)
[2021-11-26] MEDS: Ciprofloxacin in D5W 400 MG in Premix Bag 1 BAG IV SCH ×4 (09:13→20:38)
[2021-11-26] MEDS: Ketoconazole 2% Crm 30 GM Tube TOP SCH ×2 (09:15→20:40)
[2021-11-26] MEDS: HYDROmorphone 2 MG Tab PO PRN ×3 (10:10→23:46)
[2021-11-26] MEDS: Ondansetron 4 MG/2 ML SDV IVPUSH PRN (13:29)
[2021-11-27] MEDS: Acetaminophen 325 MG Tab PO SCH ×4 (04:57→23:03)
[2021-11-27] MEDS: HYDROmorphone 2 MG Tab PO PRN ×4 (04:57→20:02)
[2021-11-27 05:14] LABS: ESTIMATED GFR 83 mL/min (>60)
[2021-11-27] MEDS: Pantoprazole 40 MG Tab.CR PO SCH (07:48)
[2021-11-27] MEDS: Ciprofloxacin in D5W 400 MG in Premix Bag 1 BAG IV SCH ×4 (09:37→20:08)
[2021-11-27] MEDS: Multivitamins with Iron Tab.Chew PO SCH (09:40)
[2021-11-27] MEDS: Clopidogrel 75 MG Tab PO SCH (09:44)
[2021-11-27] MEDS: Celecoxib 200 MG Cap PO SCH ×2 (09:44→20:02)
[2021-11-27] MEDS: Ezetimibe 10 MG Tab PO SCH (09:44)
[2021-11-27] MEDS: Losartan 25 MG Tab PO SCH ×2 (09:45→20:07)
[2021-11-27] MEDS: Carvedilol 12.5 MG Tab PO SCH ×2 (09:45→20:03)
[2021-11-27] MEDS: Docusate Sodium 100 MG Cap PO SCH ×2 (09:46→20:03)
[2021-11-27] MEDS: Bisacodyl 5 MG Tab PO SCH ×2 (09:46→20:03)
[2021-11-27] MEDS: Furosemide 20 MG Tab PO SCH (09:46)
[2021-11-27] MEDS: Ketoconazole 2% Crm 30 GM Tube TOP SCH ×2 (09:47→20:09)
[2021-11-28] MEDS: HYDROmorphone 2 MG Tab PO PRN ×3 (00:13→11:53)
[2021-11-28] MEDS: Acetaminophen 325 MG Tab PO SCH (04:15)
[2021-11-28] MEDS: Ciprofloxacin in D5W 400 MG in Premix Bag 1 BAG IV SCH ×2 (08:03)
[2021-11-28] MEDS: Ezetimibe 10 MG Tab PO SCH (08:03)
[2021-11-28] MEDS: Carvedilol 12.5 MG Tab PO SCH (08:03)
[2021-11-28] MEDS: Docusate Sodium 100 MG Cap PO SCH (08:04)
[2021-11-28] MEDS: Losartan 25 MG Tab PO SCH (08:04)
[2021-11-28] MEDS: Pantoprazole 40 MG Tab.CR PO SCH (08:04)
[2021-11-28] MEDS: Celecoxib 200 MG Cap PO SCH (08:04)
[2021-11-28] MEDS: Bisacodyl 5 MG Tab PO SCH (08:05)
[2021-11-28] MEDS: Multivitamins with Iron Tab.Chew PO SCH (08:05)
[2021-11-28] MEDS: Furosemide 20 MG Tab PO SCH (08:06)
[2021-11-28] MEDS: Clopidogrel 75 MG Tab PO SCH (08:06)
[2021-11-28] MEDS: Ketoconazole 2% Crm 30 GM Tube TOP SCH (08:09)
== END 2021-11-28 12:18 | disposition home or self-care (01) | DRG 420 ==
LOC: JP.MS 14:11
PROVIDERS: ADMIT Surgery; ATTEND Surgery
PROC: 0W9G00Z Drainage of Peritoneal Cavity with Drainage Device, Open Approach (ICD-10-PCS; principal; 2021-11-20)
PROC: 05PYX3Z Removal of Infusion Device from Upper Vein, External Approach (ICD-10-PCS; 2021-11-20)
PROC: 0WQFXZZ Repair Abdominal Wall, External Approach (ICD-10-PCS; 2021-11-22)
DX: K86.89 Other specified diseases of pancreas (principal); K65.1 Peritoneal abscess; R18.8 Other ascites; T82.868A Thrombosis due to vascular prosthetic devices, implants and grafts, initial encounter; I25.10 Atherosclerotic heart disease of native coronary artery without angina pectoris; I10 Essential (primary) hypertension; F41.9 Anxiety disorder, unspecified; Z20.822 Contact with and (suspected) exposure to COVID-19; Y84.0 Cardiac catheterization as the cause of abnormal reaction of the patient, or of later complication, without mention of misadventure at the time of the procedure; Y92.89 Other specified places as the place of occurrence of the external cause; Z88.8 Allergy status to other drugs, medicaments and biological substances; Z98.84 Bariatric surgery status
CPT/HCPCS: 36415; 36430; 74177; 80053; 82150; 82728; 83735; 83880; 84100; 85025; 85027; 86850; 86900; 86901; 86920; 86922; 87070; 87075; 87077; 87186; 87205; 88305; A9270-GY; C9113; J0171; J0330; J0744; J1100; J1170; J1940; J2001; J2020; J2185; J2405; J2704; J2710; J2795; J3010; J3411; J3420; J3475; J3480; J3490; J7040; J7120; J7121; P9016; P9047; Q9967; U0002

== ENCOUNTER 2021-12-11 04:17 | Inpatient (IN) | payer OTHER ==
[2021-12-11] MEDS ORDERED: Ondansetron 4 MG/2 ML SDV IVPUSH PRN (08:54)
[2021-12-11] MEDS ORDERED: Acetaminophen 650 MG Supp RECTAL PRN (08:55)
[2021-12-11] MEDS ORDERED: Magnesium Hydroxide 400 MG/5 ML Susp 30 ML Cup PO PRN (08:56)
[2021-12-11] MEDS ORDERED: Docusate Sodium 100 MG Cap PO PRN (08:56)
[2021-12-11] MEDS ORDERED: Naloxone 0.4 MG/ML SDV IV PRN (09:00)
[2021-12-11] MEDS: Dextrose 5%-Lactated Ringers 1,000 ML IV SCH ×2 (09:24→18:40)
[2021-12-11] MEDS: Pantoprazole 40 MG Vial IV SCH (09:25)
[2021-12-11] MEDS: HYDROmorphone/Normal Saline 6 MG/30 ML PCA Vial IV PRN (09:34)
[2021-12-11 09:37] LABS: ESTIMATED GFR 97 mL/min (>60)
[2021-12-11] MEDS ORDERED: Metoclopramide 10 MG/2 ML SDV IV PRN (12:55)
[2021-12-11] MEDS ORDERED: Pantoprazole 40 MG Vial IV SCH (18:00)
[2021-12-11] MEDS: atorvaSTATin 20 MG Tab PO SCH (19:19)
[2021-12-11] MEDS: Carvedilol 12.5 MG Tab PO SCH (20:35)
[2021-12-11] MEDS: Lactobacillus Rhamnosus GG (Probiotic) Cap PO SCH (20:35)
[2021-12-11] MEDS: Losartan 25 MG Tab PO SCH (20:36)
[2021-12-12] MEDS: Dextrose 5%-Lactated Ringers 1,000 ML IV SCH (04:48)
[2021-12-12 05:19] LABS: ESTIMATED GFR 101 mL/min (>60)
[2021-12-12] MEDS: Losartan 50 MG Tab PO SCH (08:25)
[2021-12-12] MEDS: Metoclopramide 10 MG Tab PO SCH ×3 (08:25→20:51)
[2021-12-12] MEDS: Ferrous Sulfate 325 MG Tab PO SCH (08:25)
[2021-12-12] MEDS: Ezetimibe 10 MG Tab PO SCH (08:54)
[2021-12-12] MEDS: Cholecalciferol (Vitamin D3) 25 MCG Tab PO SCH (08:54)
[2021-12-12] MEDS: Docusate Sodium 100 MG Cap PO SCH ×2 (08:54→20:51)
[2021-12-12] MEDS: Bisacodyl 5 MG Tab PO SCH ×2 (08:55→20:51)
[2021-12-12] MEDS: Lactobacillus Rhamnosus GG (Probiotic) Cap PO SCH ×2 (08:55→20:51)
[2021-12-12] MEDS: Pantoprazole 40 MG Vial IV SCH (08:56)
[2021-12-12] MEDS ORDERED: MVI, Adult with Vitamin K 10 ML, Thiamine 100 MG, Magnesium Sulfate 2 GM, Folic Acid 1 ... IV ONE ×5 (09:00)
[2021-12-12] MEDS: Carvedilol 12.5 MG Tab PO SCH ×2 (09:02→20:50)
[2021-12-12] MEDS ORDERED: hydrOXYzine HCL 100 MG/2 ML SDV IM PRN ×2 (13:52→14:10)
[2021-12-12] MEDS: HYDROmorphone/Normal Saline 6 MG/30 ML PCA Vial IV PRN (13:57)
[2021-12-12] MEDS: atorvaSTATin 20 MG Tab PO SCH (17:08)
[2021-12-12] MEDS: Losartan 25 MG Tab PO SCH (20:52)
[2021-12-13] MEDS: Metoclopramide 10 MG Tab PO SCH ×4 (02:03→21:39)
[2021-12-13] MEDS ORDERED: hydrOXYzine HCl 25 MG Tab PO PRN (07:28)
[2021-12-13] MEDS: Losartan 50 MG Tab PO SCH (07:46)
[2021-12-13] MEDS: Ferrous Sulfate 325 MG Tab PO SCH (07:46)
[2021-12-13] MEDS: Pantoprazole 40 MG Tab.CR PO SCH (07:46)
[2021-12-13] MEDS: Bisacodyl 5 MG Tab PO SCH ×2 (08:06→21:38)
[2021-12-13] MEDS: Lactobacillus Rhamnosus GG (Probiotic) Cap PO SCH ×2 (08:06→21:39)
[2021-12-13] MEDS: Ezetimibe 10 MG Tab PO SCH (08:06)
[2021-12-13] MEDS: Cholecalciferol (Vitamin D3) 25 MCG Tab PO SCH (08:06)
[2021-12-13] MEDS: Carvedilol 12.5 MG Tab PO SCH ×2 (08:06→21:38)
[2021-12-13] MEDS: Docusate Sodium 100 MG Cap PO SCH ×2 (08:07→21:38)
[2021-12-13] MEDS: Magnesium Oxide 400 MG Tab PO SCH (09:41)
[2021-12-13] MEDS: Acetaminophen 325 MG Tab PO PRN ×2 (11:07→16:57)
[2021-12-13] MEDS: atorvaSTATin 20 MG Tab PO SCH (16:59)
[2021-12-13] MEDS: Losartan 25 MG Tab PO SCH (21:39)
[2021-12-14] MEDS: Acetaminophen 325 MG Tab PO PRN ×2 (02:47→10:55)
[2021-12-14] MEDS: Metoclopramide 10 MG Tab PO SCH ×3 (02:47→13:44)
[2021-12-14] MEDS: Pantoprazole 40 MG Tab.CR PO SCH (07:13)
[2021-12-14] MEDS ORDERED: Levofloxacin 500 MG Tab PO ONE (08:15)
[2021-12-14] MEDS: Lactobacillus Rhamnosus GG (Probiotic) Cap PO SCH (08:50)
[2021-12-14] MEDS: Bisacodyl 5 MG Tab PO SCH (08:50)
[2021-12-14] MEDS: Losartan 50 MG Tab PO SCH (08:51)
[2021-12-14] MEDS: Ferrous Sulfate 325 MG Tab PO SCH (08:51)
[2021-12-14] MEDS: Carvedilol 12.5 MG Tab PO SCH (08:51)
[2021-12-14] MEDS: Docusate Sodium 100 MG Cap PO SCH (08:51)
[2021-12-14] MEDS: Cholecalciferol (Vitamin D3) 25 MCG Tab PO SCH (08:52)
[2021-12-14] MEDS: Magnesium Oxide 400 MG Tab PO SCH (08:52)
[2021-12-14] MEDS: Ezetimibe 10 MG Tab PO SCH (08:52)
== END 2021-12-14 14:00 | disposition home or self-care (01) | DRG 440 ==
LOC: JP.MS 08:38
PROVIDERS: ADMIT Physician Assistant Medical; ATTEND Physician Assistant Medical
DX: K86.89 Other specified diseases of pancreas (principal); I25.10 Atherosclerotic heart disease of native coronary artery without angina pectoris; E78.00 Pure hypercholesterolemia, unspecified; I10 Essential (primary) hypertension; Z20.822 Contact with and (suspected) exposure to COVID-19; K21.9 Gastro-esophageal reflux disease without esophagitis; K44.9 Diaphragmatic hernia without obstruction or gangrene; G89.18 Other acute postprocedural pain; F41.9 Anxiety disorder, unspecified; D64.9 Anemia, unspecified; E53.8 Deficiency of other specified B group vitamins; Z90.89 Acquired absence of other organs; Z90.49 Acquired absence of other specified parts of digestive tract; Z98.51 Tubal ligation status; Z87.440 Personal history of urinary (tract) infections; I25.2 Old myocardial infarction; Z95.5 Presence of coronary angioplasty implant and graft; Z98.84 Bariatric surgery status; Z98.890 Other specified postprocedural states; Z88.8 Allergy status to other drugs, medicaments and biological substances; Z79.82 Long term (current) use of aspirin; Z79.02 Long term (current) use of antithrombotics/antiplatelets; Z79.899 Other long term (current) drug therapy; Z87.891 Personal history of nicotine dependence
CPT/HCPCS: 36415; 80053; 83735; 84100; 85025; A9270-GY; C9113; J1170; J2405; J3410; J3411; J3475; J3490; J7120; J7121; U0002